=== PATIENT | male | born 1935 | race Caucasian/White ===

== ENCOUNTER 2016-05-06 17:53 | Inpatient (IN) | payer MEDICARE, OTHER ==
[~2016-05-06] VITALS: Ht 172.7 cm; Wt 88.3 kg
[~2016-05-06 17:53] MED LIST: ACET-2047 GTB; AMIN30LI GTB; ASCO500C7 GTB; ATOR40TA68 GTB; CALC-67 GTB; CETI-240 GTB; CIPR500T4 GTB; CLON-379 GTB; COLS GTB; CRAN400C GTB; DOXA4TAB3 GTB; ERGO500014 GTB; ESOM40CA GTB; FENO145T19 GTB; GLUC1VIA7 IM; HYDR-3498 GTB; IPRA3AMP INHALATION; LACT1CAP49 GTB; LACT20SO2 GTB; LANT3I SC; LORA1TAB GTB; MAGN400O4 GTB; METO25TA4 GTB; MULT9LIQ2 GTB; NIT4 SL; NITR-58 GTB; NOV SC; OLOP2.5D BOTH EYES; OMEP20CA16 GTB; POLY17PO6 GTB; TETR15DR63 LEFT EYE; UDREG GTB; ZOLP10TA5 GTB
[2016-05-06 18:12] VITALS: Ht 172.7 cm; Wt 88.3 kg
[2016-05-06] MEDS ORDERED: SOD CHLORIDE 0.9% 1,000 ML IV STA ×3 (18:14→18:39)
[2016-05-06] MEDS ORDERED: AZTREONAM 1 GM/NS (PMX) 50 ML IVPB STA (18:14)
[2016-05-06] MEDS ORDERED: ALBUTEROL 0.5% (NEB) 2.5 MG/0.5 ML AMP HHN STA (18:14)
[2016-05-06] MEDS ORDERED: IPRATROPIUM (NEB) 0.5 MG/2.5 ML AMP HHN ONE (18:30)
[2016-05-06] MEDS ORDERED: VANCOMYCIN 1 GM (PMX) 250 ML IVPB ONE (18:30)
[2016-05-06] MEDS ORDERED: HYDROCORTISONE 100 MG INJ IV ONE (18:30)
[2016-05-06 18:37] LABS: BASOPHILS % 0.4 % (0.0-2.0); EOSINOPHILS # 0.1 10^3/ul (0.0-0.5); HEMATOCRIT 26.3 % (42.0-52.0); HEMOGLOBIN 8.4 g/dl (14.0-18.0); LYMPHOCYTES # 1.7 10^3/ul (0.8-2.9); LYMPHOCYTES % 22.5 % (15.0-51.0); MEAN CORPUSCULAR HEMOGLOBIN 26.9 pg (29.0-33.0); MEAN CORPUSCULAR HGB CONC 31.9 g/dl (32.0-37.0); MEAN CORPUSCULAR VOLUME 84.4 fl (82.0-101.0); MEAN PLATELET VOLUME 7.7 fl (7.4-10.4); MONOCYTE # 0.8 10^3/ul (0.3-0.9); MONOCYTES % 10.4 % (0.0-11.0); NEUTROPHIL # 4.9 10^3/ul (1.6-7.5); NEUTROPHILS % 65.7 % (39.0-77.0); PLATELET COUNT 570 10^3/UL (140-440); RED BLOOD COUNT 3.11 10^6/ul (4.70-6.10); RED CELL DISTRIBUTION WIDTH 19.7 % (11.5-14.5); UNCORRECTED WBC 7.5 10^3/ul (4.8-10.8); WHITE BLOOD COUNT 7.5 10^3/ul (4.8-10.8)
[2016-05-06 18:46] LABS: CONDITION 1; LH ANALYZER COMMENTS 1
[2016-05-06 18:47] LABS: ALBUMIN 3.2 g/dl (3.3-4.9)
[2016-05-06 18:48] LABS: INR 3.03; POTASSIUM 5.1 mmol/L (3.5-5.1); PROTIME 31.8 Sec (12.2-14.2); PT RATIO 2.5
[2016-05-06 18:50] LABS: CREATININE 1.1 mg/dl (0.61-1.24); TOTAL PROTEIN 6.7 g/dl (6.1-8.1)
[2016-05-06 18:51] LABS: ALBUMIN/GLOBULIN RATIO 0.91; CALCIUM 9.6 mg/dl (8.4-10.2)
[2016-05-06] MEDS ORDERED: ACETAMINOPHEN 650 MG SUPP PR ONE (19:00)
--- NOTE | 2016-05-06 19:00 | RADRPT ---
PROCEDURE: XR Chest. CLINICAL INDICATION: Possible sepsis. TECHNIQUE: Single frontal view of the chest was obtained COMPARISON: Chest x-ray 01/17/2016 05:42 p.m. FINDINGS: The left ventricle is enlarged. There is a poor inspiration. There is infiltrate in the right lowe r lobe. There is compressive atelectasis in the left lower lobe. There are vascular calcifications in the aortic arch. There are degenerative osteophytes in the thoracic spine. Tracheostomy tube i s well-positioned at T4-5. There is a left pleural effusion. A right pleural effusion is not exclud ed. IMPRESSION: 1. Interval development of a right lower lobe infiltrate suspicious for pneumonia. 2. Suboptimal inspiratory effort with compressive atelectasis in the bases of the lungs. 3. Satisfactory positioning of the tracheostomy tube. 4. Atherosclerotic vascular disease. 5. Left ventricular enlargement. 6. Left pleural effusion. RPTAT:AAJJ Physician Lizet Date Time Electronically viewed and signed by Yobany Lynn Physician on 05/06/2016 18:59 LENARD/
[2016-05-06 19:03] LABS: PARTIAL THROMBOPLASTIN TIME 74.3 Sec (25.0-35.0); TROPONIN-I 0.049 ng/ml (0.00-0.12)
--- NOTE | 2016-05-06 20:40 | ERA ---
ER Documentation Chief Complaint Date/Time DATE: 05/06/16 TIME: 20:37 Chief Complaint BROUGHT IN VIA PRIVATE AMBULANCE FROM SNF DUE TO LOW HGB HPI Patient is an 80-year-old male with chronic respiratory failure who presents from a nursing facility. He was sent for low hemoglobin and fever. His hemoglobin was 7.8 with outpatient laboratory studies. He was brought in by ambulance from a detention facility. Please note the patient is a DNR. Please note the history and physical exam is limited as the patient is aphasic and does not follow commands. ROS All systems reviewed and are negative except as per history of present illness. Medications Home Meds Active Scripts Polyethylene Glycol* (Miralax*) 17 Gm/Pkt Liq, 17 GM GTB DAILY for 30 Days Prov:KARIN SHI V. THEATRE PROGRAM DIRECTOR 05/26/15 Reported Medications Amino Acids/Protein Hydrolys (PRO-STAT LIQUID) 30 Ml Liquid.pkt, 30 ML GTB TID 03/25/16 Tetrahydrozoline Hcl* (Visine*) 0.05% - 15 Ml Drops, 2 DROP LEFT EYE QID Y for RED EYES, #1 EA 03/25/16 Ciprofloxacin Hcl* (Ciprofloxacin Hcl*) 500 Mg Tablet, 500 MG GTB BID for 10 Days, #14 TAB 03/25/16 Insulin Glargine* (Lantus*) 100 Unit/Ml Soln, 20 UNIT SC BID, #1 VIAL 03/25/16 Metoprolol Tartrate* (Lopressor*) 25 Mg Tablet, 25 MG GTB BID, #60 TAB HOLD IF SBP<110 OR HR<55 03/25/16 Zolpidem Tartrate* (Zolpidem Tartrate*) 10 Mg Tablet, 10 MG GTB QHS Y for INSOMNIA, #30 TAB 12/20/15 Ascorbic Acid* (Vitamin C*) 500 Mg Capsule.sa, 500 MG GTB DAILY, CAP 12/20/15 Lactulose* (Lactulose*) 20 Gm/30 Ml Solution, 40 GM GTB QHS, ML 12/20/15 Omeprazole* (Omeprazole*) 20 Mg Capsule.dr, 20 MG GTB DAILY, #30 CAP 12/20/15 Lactobacillus Combination No.4 (Probiotic) 1 Each Capsule, 1 CAP GTB BID, CAP 12/20/15 Cetirizine Hcl* (Cetirizine Hcl*) 10 Mg Tablet, 10 MG GTB DAILY, #30 TAB 12/20/15 Esomeprazole Mag Trihydrate (Nexium) 40 Mg Capsule.dr, 40 MG GTB BID, #30 CAP 12/20/15 Metoclopramide* (Reglan*) 10 Mg/10 Ml Soln, 10 MG GTB Q6, ML 12/20/15 Atorvastatin* (Atorvastatin*) 40 Mg Tablet, 40 MG GTB QHS, #30 TAB 12/20/15 Glucagon* (Glucagen*) 1 Mg Soln, 1 MG IM PRN Y for DECREASED GLUCOSE, VIAL 05/23/15 Insulin Aspart* (Novolog Insulin Vial*) 100 U/Ml Vial, 1-6 UNITS SC BID, VIAL 05/23/15 Ergocalciferol* (Drisdol* (Vitamin D2)) 50,000 Unit Capsule, 78105 UNIT GTB Q7D , CAP Monday05/23/15 Lorazepam* (Lorazepam*) 1 Mg Tablet, 1 MG GTB Q6 Y for ANXIETY, #60 TAB 05/01/15 Hydrocodone Bit-Acetaminophen* (Dauphin*) 5-325 Mg Tab, 1 TAB GTB Q4H Y for PAIN, TAB 05/01/15 Magnesium Hydroxide* (Milk Of Magnesia*) 400 Mg/5 Ml Oral.susp, 30 ML GTB DAILY Y for CONSTIPATION, ML 05/01/15 Nitroglycerin* (Nitrostat*) 0.4 Mg Tab.subl, 0.4 MG SL Q5MIN Y for CHEST PAIN, BOTTLE 05/01/15 Clonidine Hcl* (Clonidine Hcl*) 0.1 Mg Tab, 0.1 MG GTB Q8 Y for ELEVATED BLOOD PRESSURE, TAB 05/01/15 Acetaminophen* (Acetaminophen*) 650 Mg Tablet, 650 MG GTB Q6H Y for PAIN AND OR ELEVATED TEMP, #30 TAB 05/01/15 Cranberry (Cranberry) 400 Mg Capsule, 400 MG GTB DAILY, CAP 05/01/15 Olopatadine* (Pataday*) 0.2% - 2.5 Ml Drops, 1 DROP BOTH EYES DAILY, EA 05/01/15 Calcium Carbonate/Vitamin D3* (Os-Olivier 500+D*) 1 Tab Tablet, 1 TAB GTB DAILY, TAB 05/01/15 Multivitamin/Minerals* (Multivitamin w/Min* Liq) 9 Mg/15 Ml Liquid, 15 ML GTB DAILY, ML 05/01/15 Fenofibrate Nanocrystallized* (Fenofibrate*) 145 Mg Tablet, 145 MG GTB QHS, TAB 05/01/15 Doxazosin Mesylate* (Doxazosin Mesylate*) 4 Mg Tablet, 4 MG GTB HS, TAB HOLD FOR SBP<100, HR<60 05/01/15 Docusate Sodium* (Colace* Liq) 10 Mg/Ml Syrup, 100 MG GTB BID, ML 05/01/15 Ipratropium-Albuterol (Ipratropium-Albuterol) 0.5-3 Mg/3 Ml Ampul.neb, 3 ML INHALATION Q6, #30 VIAL 05/01/15 Discontinued Reported Medications Nitrofurantoin Monohyd Macrocr* (Macrobid*) 100 Mg Capsr, 100 MG GTB Q6 for 10 Days, CAP 03/25/16 Allergies Allergies: Coded Allergies: cefazolin sodium (Verified Allergy, Severe, 03/25/16) throat swelling and hives piroxicam (Verified Allergy, Intermediate, 03/25/16) Penicillins (Verified Allergy, Unknown, 03/25/16) PMhx/Soc History of Surgery: Yes (g tube) Anesthesia Reaction: No Hx Neurological Disorder: No Hx Respiratory Disorders: Yes (s/p trach 1 year ago, no vent) Hx Cardiac Disorders: Yes (A-fib) Hx Psychiatric Problems: No Hx Miscellaneous Medical Probl: Yes (trach, chronic encephalopathy, CVA, CAD, A -Fib, C-Diff, Respiratory failure) Hx Alcohol Use: No Hx Substance Use: No Hx Tobacco Use: Yes (quit 30 yrs ago) Smoking Status: Former smoker FmHx Unable to obtain Physical Exam Vitals Vital Signs Date Time Temp Pulse Resp B/P Pulse Ox O2 Delivery O2 Flow Rate FiO2 05/06/16 18:53 4 05/06/16 18:30 101.3 106 24 113/61 99 Trach Collar 05/06/16 18:26 89 30 95 Aerosol Mask 4.0 05/06/16 18:12 100.4 82 24 141/65 98 Physical Exam Const: Chronically ill Head: Atraumatic Eyes: Normal Conjunctiva ENT: Normal External Ears, Nose and Mouth. Neck: Full range of motion..~ No meningismus. Resp: Wheezing diffusely Cardio: Tachycardic rate Abd: Soft, non tender, non distended. Normal bowel sounds Skin: Pale Back: No midline or flank tenderness Ext: No cyanosis, or edema Neur: Awake but encephalopathic at baseline Result Diagram: 05/06/16181905/06/161819 Results 24 hrs Laboratory Tests Test 05/06/16 18:20 Activated Partial Thromboplast Time 74.3Sec Alanine Aminotransferase (ALT/SGPT) 22IU/L Albumin 3.2g/dl Albumin/Globulin Ratio 0.91 Alkaline Phosphatase 40IU/L Anion Gap 13 Aspartate Amino Transf (AST/SGOT) 52IU/L Basophils # 0.010^3/ul Basophils % 0.4% Blood Morphology Comment Blood Urea Nitrogen 65mg/dl Calcium Level 9.6mg/dl Carbon Dioxide Level 36mmol/L Chloride Level 88mmol/L Creatinine 1.10mg/dl Direct Bilirubin 0.00mg/dl Eosinophils # 0.110^3/ul Eosinophils % 1.0% Globulin 3.50g/dl Glucose Level 184mg/dl Hematocrit 26.3% Hemoglobin 8.4g/dl INR International Normalized Ratio 3.03 Indirect Bilirubin 0.0mg/dl Lactic Acid Level 1.0mmol/L Lymphocytes # 1.710^3/ul Lymphocytes % 22.5% Mean Corpuscular Hemoglobin 26.9pg Mean Corpuscular Hemoglobin Concent 31.9g/dl Mean Corpuscular Volume 84.4fl Mean Platelet Volume 7.7fl Monocytes # 0.810^3/ul Monocytes % 10.4% Neutrophils # 4.910^3/ul Neutrophils % 65.7% Nucleated Red Blood Cells # 0.010^3/ul Nucleated Red Blood Cells % 0.0/100WBC Platelet Count 43850^3/UL Potassium Level 5.1mmol/L Prothrombin Time 31.8Sec Prothrombin Time Ratio 2.5 Red Blood Count 3.1110^6/ul Red Cell Distribution Width 19.7% Sodium Level 132mmol/L Total Bilirubin 0.0mg/dl Total Protein 6.7g/dl Troponin I 0.049ng/ml White Blood Count 7.510^3/ul Current Medications Medications (Trade) Dose Ordered Sig/Sreekanth Route PRN Reason Start Time Stop Time Status Last Admin Dose Admin Vancomycin HCl 250 ml @ 125 mls/hr ONCE ONCE IVPB 05/06/16 18:30 05/06/16 20:29 DC 05/06/16 19:12 Aztreonam (Azactam 1gm/NS (Pmx)) 50 ml @ 100 mls/hr ONCE STAT IVPB 05/06/16 18:14 05/06/16 18:43 DC 05/06/16 18:47 Albuterol (Proventil 0.5% (Neb)) 5 mg ONCE STAT HHN 05/06/16 18:14 05/06/16 18:17 DC 05/06/16 18:26 Ipratropium [place] (Atrovent 0.02% (Neb)) 0.5 mg ONCE ONCE HHN 05/06/16 18:30 05/06/16 18:31 DC 05/06/16 18:26 Hydrocortisone 100 mg 100 mg ONCE ONCE IV 05/06/16 18:30 05/06/16 18:31 DC 05/06/16 18:42 Sodium Chloride 1,000 ml @ 1,000 mls/hr Q1H STAT IV 05/06/16 18:14 05/06/16 19:13 DC 05/06/16 18:42 Sodium Chloride (NS) 1,000 ml @ 1,000 mls/hr Q1H STAT IV 05/06/16 18:14 05/06/16 19:13 DC 05/06/16 18:47 Acetaminophen 650 mg 650 mg ONCE ONCE [place] 05/06/16 19:00 05/06/16 19:01 DC 05/06/16 19:13 Sodium Chloride (NS) 1,000 ml @ 1,000 mls/hr Q1H STAT IV 05/06/16 18:39 05/06/16 19:38 DC 05/06/16 19:13 Ondansetron HCl (Zofran Inj) 4 mg ER BRIDGE PRN IV NAUSEA AND/OR VOMITING 05/06/16 21:00 05/07/16 20:59 Acetaminophen (Tylenol Tab) 650 mg ER BRIDGE PRN PO MILD PAIN/FEVER 05/06/16 21:00 05/07/16 20:59 Procedures/MDM EKG read by me: Rate/Rhythm: Atrial fibrillation at a rate of 83 Intervals: Normal Impression: Atrial fibrillation without evidence of ischemia PROCEDURE: XR Chest. CLINICAL INDICATION: Possible sepsis. TECHNIQUE: Single frontal view of the chest was obtained COMPARISON: Chest x-ray 01/17/2016 05:42 p.m. FINDINGS: The left ventricle is enlarged. There is a poor inspiration. There is infiltrate in the right lower lobe. There is compressive atelectasis in the left lower lobe. There are vascular calcifications in the aortic arch. There are degenerative osteophytes in the thoracic spine. Tracheostomy tube is well- positioned at T4-5. There is a left pleural effusion. A right pleural effusion is not excluded. IMPRESSION: 1. Interval development of a right lower lobe infiltrate suspicious for pneumonia. 2. Suboptimal inspiratory effort with compressive atelectasis in the bases of the lungs. 3. Satisfactory positioning of the tracheostomy tube. 4. Atherosclerotic vascular disease. 5. Left ventricular enlargement. 6. Left pleural effusion. RPTAT:AAJJ Physician Lizet Date Time Electronically viewed and signed by Yobany Lynn Physician on 05/06/2016 18:59 Admit MDM: Patient's infectious symptoms have not stabilized and the patient is at risk of rapid decompensation. The patient will be admitted for careful hydration, antibiotic therapy, and infectious source control. Severe Sepsis criteria: Infectious source: Pneumonia End organ damage indicated by: INR greater than 1.5 Sepsis Management: Time of recognition of sepsis: 18:59 Within 3 hours of recognition: Blood cultures x 2 before broad-spectrum antibiotics: Yes 30 ml/kg NS bolus Completed Initial lactate 1.0 Repeat lactate pending Time of recognition of septic shock: No septic shock Septic Shock Assessment: Any lactic acid > 4.0 No Persistent hypotension (SBP < 90 or 40 mmHg drop, MAP < 65) despite 30 mL/kg IV fluid bolus No Volume Re-assessment for Septic Shock (post 30 ml/kg bolus): No septic shock at this time Persistent Hypotension Treatment: Comfort care no Central line Not Required Vasopressor started Not required I considered further perfusion assessment with CVP measurement, SCVO2, bedside ultrasound volume assessment, passive leg raise, trial of further fluid bolus. And proceeded with 30 ml/kg fluid bolus of NSS, broad spectrum antibiotics, and admission. I also ordered 2 units of packed red blood cells as the patient's initial hemoglobin was 7.8 with outpatient laboratory studies and was only 8.4 in the emergency department. I am concerned as he is pale and tachycardic as well. Accepting Care Team Current data and ongoing care discussed. Admitting Physician: Dr. Valderrama from the panel team Airline Pilot Flight Instructor(s): None Outstanding Data: Culture results and repeat lactic acid Critical Care: Critical care time 35 minutes excluding all billable procedures Emergent fluid management while maintaining close respiratory support. Provision of immediate and broad-spectrum antibiotic therapy. Simultaneous assessment for possible sources in order to direct targeted therapy. Consideration for invasive and chemical support to prevent cardiopulmonary collapse. Departure Diagnosis: Primary Impression: Sepsis Qualified Code: A41.9 - Sepsis, due to unspecified organism Additional Impressions: Anemia Qualified Code: D64.9 - Anemia, unspecified type Pneumonia Qualified Code: J18.9 - Pneumonia due to infectious organism, unspecified laterality, unspecified part of lung Condition: MARY KATE Alcantar MD May 06, 2016 20:40
[2016-05-06] MEDS ORDERED: ONDANSETRON 4 MG INJ IV PRN (21:00)
[2016-05-06] MEDS ORDERED: ACETAMINOPHEN 325 MG TAB PO PRN (21:00)
[2016-05-07] VITALS (13 sets, daily range): BP systolic 100–156; BP diastolic 46–72; PULSE 50–128; RESP 16–18; TEMP 97.9
[2016-05-07] MEDS ORDERED: GLUCOSE GEL 15 GRAM TUBE PO PRN ×2 (05:30)
[2016-05-07] MEDS ORDERED: GLUCAGON 1 MG INJ IM PRN (05:30)
[2016-05-07] MEDS ORDERED: GLUCOSE GEL 15 GRAM TUBE BUCCAL PRN (05:30)
[2016-05-07] MEDS ORDERED: DEXTROSE 50% 50 ML SYRINGE IV PRN ×2 (05:30)
--- NOTE | 2016-05-07 06:58 | HP ---
Date/Time of Note Date/Time of Note DATE: 05/07/16 TIME: 06:48 Assessment/Plan VTE Prophylaxis VTE Prophylaxis Intervention: SCD's Lines/Catheters IV [facility] [place] Lock Urinary Cath still in place: No Assessment/Plan Assessment/Plan IMPRESSION 1. Sepsis 2/2 Influenza A, with possible overlying bacterial PNA 2. Anemia, r/o GI Bleed 3. Chronic trach dependent respiratory failure 4. Hx of CVA 5. Hx of CAD 6. Afib PLAN - Abx, Tamiflu - f/u culture results, including tracheal aspirate - Will check FOBT and Iron profile. will place a GI consult - Bronchodilators as needed - Cont home meds with adjustment as needed - Pulmonary consult HPI/ROS Admit Date/Time Admit Date/Time May 06, 2016 at 20:35 Hx of Present Illness Patient is an 80-year-old male with hx of chronic trach dependent respiratory failure, CVA, CAD, Afib who presents from a nursing facility. He was sent for low hemoglobin and fever. His hemoglobin was 7.8 with outpatient laboratory studies. He was brought in by ambulance from a alf facility. Please note the patient is a DNR. Please note the history and physical exam is limited as the patient is aphasic and does not follow commands. In ER, pt was febrile with temp of 101.6, HR 106. Labs showed Hgb 8.4, Na 132, Cl 88 and BUN 65. CXR showed right lower lobe infiltrate suspicious for pneumonia. . PMH/Family/Social Past Medical History Medical History: coronary artery disease, other (CVA, chronic resp failure, afib) Past Surgical History Past Surgical Hx: angioplasty, endoscopy, other Social History Alcohol Use: none Smoking Status: Former smoker Drug Use: none Exam/Review of Systems Vital Signs Vitals Vital Signs Date Time Temp Pulse Resp B/P Pulse Ox O2 Delivery O2 Flow Rate FiO2 05/07/16 05:34 50 05/07/16 04:27 10.0 05/07/16 04:22 97.9 16 100/56 98 Trach Collar 05/07/16 03:38 28 Exam Constitutional: non-verbal, other (trached) Head: atraumatic, normocephalic Eyes: PERRL Respiratory: diminished breath sounds Cardiovascular: other (tachycardic) Gastrointestinal: other (no gramices noted), soft Extremities: normal pulses Labs Result Diagram: 05/06/16181905/06/161819 Medications Medications Current Medications Insulin Glargine (Lantus) 20 unit BID@08,20 SC ; Start 05/07/16 at 08:00 Clonidine (Catapres) 0.1 mg Q6 PRN GTB ELEVATED BLOOD PRESSURE; Start 05/07/16 at 05:00 Miscellaneous Information 1 ea NOTE XX ; Start 05/07/16 at 05:30 Glucose (Glutose) 15 gm Q15M PRN PO DECREASED GLUCOSE; Start 05/07/16 at 05:30 Glucose (Glutose) 22.5 gm Q15M PRN PO DECREASED GLUCOSE; Start 05/07/16 at 05:30 Dextrose (D50w Syringe) 25 ml Q15M PRN IV DECREASED GLUCOSE; Start 05/07/16 at 05:30 Dextrose (D50w Syringe) 50 ml Q15M PRN IV DECREASED GLUCOSE; Start 05/07/16 at 05:30 Glucagon (Glucagen) 1 mg Q15M PRN IM DECREASED GLUCOSE; Start 05/07/16 at 05:30 Glucose (Glutose) 15 gm Q15M PRN BUCCAL DECREASED GLUCOSE; Start 05/07/16 at 05: 30 Insulin Aspart NOVOLOG *MODERATE* ALGORI... Q6 SC ; Start 05/07/16 at 06:00 Levofloxacin/ Dextrose (Levaquin 500mg/ D5W 100 ml (Pmx)) 100 ml @ 100 mls/hr Q24H IVPB ; Start 05/07/16 at 06:30 GIANA HENDERSON MD May 07, 2016 06:58
[2016-05-07] MEDS: LEVOFLOXACIN 500MG/D5W (PMX) 100 ML IVPB SCH ×2 (07:14→08:08)
[2016-05-07] MEDS ORDERED: INSULIN ASPART [NOVOLOG] 3 ML PEN SC SCH (07:55)
[2016-05-07] MEDS: OSELTAMIVIR 75 MG CAP PO SCH ×2 (08:08→20:49)
[2016-05-07] MEDS: INSULIN ASPART [NOVOLOG] 3 ML PEN SC SCH ×3 (08:11→17:32)
[2016-05-07] MEDS: INSULIN GLARGINE [LANtus] 3 ML PEN SC SCH ×2 (08:11→20:51)
--- NOTE | 2016-05-07 08:39 | CONS ---
Date/Time of Note Date/Time of Note DATE: 05/07/16 TIME: 08:39 Assessment/Plan Assessment/Plan Additional Assessment/Plan Anemia * Evaluate for PUD versus iron deficient * Iron profile * Stool OB * PPI therapy * Monitor H&H every 6 hours, transfuse 2 units for hemoglobin less than 7.5 * Recommend EGD if clinically indicated Sepsis 2/2 Influenza A, with possible overlying bacterial PNA Dysphagia * Status post G-tube replacement March 25, 2016 * KUB in process to evaluate high residual * Monitor residual every 6 hours, hold tube feed for residual greater than 150 mL Chronic trach dependent respiratory failure Hx of CVA Hx of CAD Afib Further recommendations depend on clinical course Patient seen in collaboration with Dr. Shah Consultation Date/Type/Reason Admit Date/Time May 06, 2016 at 20:35 Type of Consultation: Gastroenterology Reason for Consultation Anemia Hx of Present Illness 80-year-old Ukrainian speaking male with past medical history of respiratory dependence NG tube placement status post CVA and [place] 1.5 years ago. Patient's son and [id number] at bedside and provided most of history. Patient was transferred to ED from [facility] facility due to low hemoglobin. Unsure if patient had melena stools. Patient was previously here March 25, 2016 for G-tube to be replaced. Patient had EGD May 25, 2015 and was noted to have circumferential ulceration at the distal esophagus and small hiatal hernia. Per son and [id number], patient did not exhibit overt signs of bleeding. Patient is DNR however did consent to EGD if clinically necessary. At bedside, patient noted to have high residual tube feed. KUB ordered to rule out ileus or SBO. Will collect stool OB and iron profile and evaluate further. Past Medical History Medical History: coronary artery disease, other (CVA, chronic resp failure, afib) Past Surgical History Past Surgical Hx: angioplasty, endoscopy, other Social History Alcohol Use: none Smoking Status: Former smoker Drug Use: none Exam/Review of Systems Vital Signs Vitals Vital Signs Date Time Temp Pulse Resp B/P Pulse Ox O2 Delivery O2 Flow Rate FiO2 05/07/16 08:25 50 05/07/16 07:24 98.1 18 104/46 97 05/07/16 04:27 10.0 05/07/16 04:22 Trach Collar 05/07/16 03:38 28 Exam Constitutional: alert, oriented Psych: nl mood/affect Head: normocephalic Eyes: EOMI, nl conjunctiva, nl lids, nl sclera ENMT: mucosa pink and moist, nl external ears & nose, nl lips & teeth, nl nasal mucosa & septum Respiratory: other (Trachea dependent respiratory failure) Cardiovascular: regular rate and rhythm Gastrointestinal: non-tender, soft Musculoskeletal: nl extremities to inspection Extremities: edema Neurological: nl mental status, other (Slurred speech secondary to CVA) Results Result Diagram: 05/06/16181905/06/161819 Results 24 hrs Laboratory Tests Test 05/06/16 18:20 05/06/16 20:30 05/06/16 22:30 05/07/16 06:50 Activated Partial Thromboplast Time 74.3 *H Alanine Aminotransferase (ALT/SGPT) 22 Albumin 3.2 L Albumin/Globulin Ratio 0.91 Alkaline Phosphatase 40 L Anion Gap 13 Aspartate Amino Transf (AST/SGOT) 52 H Basophils # 0.0 Basophils % 0.4 Blood Morphology Comment Blood Urea Nitrogen 65 H Calcium Level 9.6 Carbon Dioxide Level 36 H Chloride Level 88 L Creatinine 1.10 Direct Bilirubin 0.00 Eosinophils # 0.1 Eosinophils % 1.0 Globulin 3.50 H Glucose Level 184 Hematocrit 26.3 L Hemoglobin 8.4 L INR International Normalized Ratio 3.03 Indirect Bilirubin 0.0 Lactic Acid Level 1.0 0.5 0.6 Lymphocytes # 1.7 Lymphocytes % 22.5 Mean Corpuscular Hemoglobin 26.9 L Mean Corpuscular Hemoglobin Concent 31.9 L Mean Corpuscular Volume 84.4 Mean Platelet Volume 7.7 Monocytes # 0.8 Monocytes % 10.4 Neutrophils # 4.9 Neutrophils % 65.7 Nucleated Red Blood Cells # 0.0 Nucleated Red Blood Cells % 0.0 Platelet Count 570 H Potassium Level 5.1 Prothrombin Time 31.8 #H Prothrombin Time Ratio 2.5 Red Blood Count 3.11 L Red Cell Distribution Width 19.7 H Sodium Level 132 L Total Bilirubin 0.0 L Total Protein 6.7 Troponin I 0.049 White Blood Count 7.5 # Bedside Glucose 249 H Medications Medications Current Medications Insulin Glargine (Lantus) 20 unit BID@08,20 SC Last administered on 05/07/16t 08 :11; Admin Dose 20 UNIT; Start 05/07/16 at 08:00 Clonidine (Catapres) 0.1 mg Q6 PRN GTB ELEVATED BLOOD PRESSURE; Start 05/07/16 at 05:00 Miscellaneous Information 1 ea NOTE XX ; Start 05/07/16 at 05:30 Glucose (Glutose) 15 gm Q15M PRN PO DECREASED GLUCOSE; Start 05/07/16 at 05:30 Glucose (Glutose) 22.5 gm Q15M PRN PO DECREASED GLUCOSE; Start 05/07/16 at 05:30 Dextrose (D50w Syringe) 25 ml Q15M PRN IV DECREASED GLUCOSE; Start 05/07/16 at 05:30 Dextrose (D50w Syringe) 50 ml Q15M PRN IV DECREASED GLUCOSE; Start 05/07/16 at 05:30 Glucagon (Glucagen) 1 mg Q15M PRN IM DECREASED GLUCOSE; Start 05/07/16 at 05:30 Glucose (Glutose) 15 gm Q15M PRN BUCCAL DECREASED GLUCOSE; Start 05/07/16 at 05: 30 Insulin Aspart NOVOLOG *MODERATE* ALGORI... Q6 SC Last administered on 08:11; Admin Dose 6 UNIT; Start 05/07/16 at 06:00 Levofloxacin/ Dextrose (Levaquin 500mg/ D5W 100 ml (Pmx)) 100 ml @ 100 mls/hr Q24H IVPB Last administered on 05/07/16 08:08; Admin Dose 100 MLS/HR; Start 05/07/16 at 06:30 Oseltamivir Phosphate (Tamiflu) 75 mg BID PO Last administered on 05/07/16 08: 08; Admin Dose 75 MG; Start 05/07/16 at 09:00 Influenza Virus Vaccine (Fluzone) 0.5 ml ONCE ONCE IM* ; Start 05/10/16 at 09:00 ; Stop 05/10/16 at 09:01 LISA ESPINOZA May 07, 2016 08:39
[2016-05-07 10:17] LABS: ALBUMIN 2.8 g/dl (3.3-4.9)
[2016-05-07 10:18] LABS: POTASSIUM 4.3 mmol/L (3.5-5.1)
[2016-05-07 10:20] LABS: ALBUMIN/GLOBULIN RATIO 0.9; CREATININE 0.9 mg/dl (0.61-1.24); TOTAL PROTEIN 5.9 g/dl (6.1-8.1)
[2016-05-07 10:21] LABS: CALCIUM 8.6 mg/dl (8.4-10.2)
[2016-05-07 10:49] LABS: IRON 30 ug/dl (35-150)
[2016-05-07 10:51] LABS: HEMATOCRIT 24.1 % (42.0-52.0); HEMOGLOBIN 7.3 g/dl (14.0-18.0); MEAN CORPUSCULAR HEMOGLOBIN 27.5 pg (29.0-33.0); MEAN CORPUSCULAR HGB CONC 30.3 g/dl (32.0-37.0); MEAN CORPUSCULAR VOLUME 90.9 fl (82.0-101.0); PLATELET COUNT 523 10^3/UL (140-440); RED BLOOD COUNT 2.65 10^6/ul (4.70-6.10); RED CELL DISTRIBUTION WIDTH 18.6 % (11.5-14.5); WHITE BLOOD COUNT 5.2 10^3/ul (4.8-10.8)
[2016-05-07 10:52] LABS: BASOPHILS % 0.2 % (0.0-2.0); LYMPHOCYTES # 1.2 10^3/ul (0.8-2.9); LYMPHOCYTES % 23.5 % (15.0-51.0); MEAN PLATELET VOLUME 10.3 fl (7.4-10.4); MONOCYTE # 0.4 10^3/ul (0.3-0.9); MONOCYTES % 6.9 % (0.0-11.0); NEUTROPHIL # 3.5 10^3/ul (1.6-7.5); NEUTROPHILS % 67.3 % (39.0-77.0)
[2016-05-07 10:59] LABS: TOTAL IRON BINDING CAPACITY 272 ug/dl (241-421)
[2016-05-07] MEDS: PANTOPRAZOLE 40 MG INJ IV SCH ×2 (11:55→20:50)
[2016-05-07] MEDS ORDERED: SOD CHLORIDE 0.9% 250 ML IV* ONE (12:19)
--- NOTE | 2016-05-07 14:44 | RADRPT ---
PROCEDURE: XR Abdomen. CLINICAL INDICATION: Sepsis, high residuals from feeding tube. TECHNIQUE: Single AP view of the abdomen is available for review. COMPARISON: 03/25/2016 FINDINGS: There is patchy airspace opacity in the left lung base. The bowel gas pattern is normal. There is no evidence of obstruction. Gastrostomy tube demonstrates stable and satisfactory position. There are no abnormal calcifications overlying the urinary tracts. No free air identified. The osseous structures do not demonstrate acute abnormality. Right femur intramedullary yao and dynamic hip screw is noted with incompletely healed femoral neck fracture. IMPRESSION: 1. No evidence of bowel obstruction, perforation or radiopaque calculi overlying the urinary tracts . 2. Stable and satisfactory position of gastrostomy tube. 3. Incompletely healed right femoral neck fracture with intramedullary yao and dynamic hip screw, w ithout evidence of hardware failure or other complication. 4. Patchy infiltrate in left lung base. RPTAT: QQ .Micky Garcia MD, MD Date Time Electronically viewed and signed by .Micky Garcia MD, MD on 05/07/2016 14:44 .M/
--- NOTE | 2016-05-07 15:44 | PN ---
DATE: 05/07/2016 PULMONARY FOLLOWUP SUBJECTIVE: The patient remains essentially unchanged. PHYSICAL EXAMINATION: VITAL SIGNS: Temperature 97, pulse 120, blood pressure 121/50, O2 saturation 96% on 35% FIO2. NECK: Trach site clean and intact. CARDIAC EXAM: S1, S2. No added sounds or murmurs. CHEST: Diminished air entry bilaterally. ABDOMEN: Soft, nontender. No guarding or rebound. EXTREMITIES: No cyanosis, clubbing or edema. NEUROLOGIC: Generalized weakness. LABORATORY: White count 5.2, hemoglobin 7.3, platelets of 523. BUN 59, creatinine 0.9. Iron satur ation was 11. INR 3.03. IMPRESSION AND PLAN: 1. Vent-dependent respiratory failure. 2. Anemia. 3. Sepsis. Possible influenza infection. 4. History of encephalopathy. The patient will require: 1. Continued vent support. 2. Transfusion of packed red blood cells. 3. Pulmonary toilet. 4. DVT and GI prophylaxis. 5. Gastrointestinal recommendations. Dictated By: JESSICA MATA/JALEESA Conf#: [id number] DID#: [id number]
[2016-05-07] MEDS: NYSTATIN SUSP 5 ML CUP PO SCH ×2 (17:32→20:49)
[2016-05-07] MEDS: ALBUTEROL/IPRATROPIUM (NEB) 3 ML AMP HHN PRN (22:51)
[2016-05-08] VITALS (13 sets, daily range): BP systolic 114–157; BP diastolic 53–69; PULSE 77–100; RESP 16–20
[2016-05-08] MEDS ORDERED: ACCUCHECK XX SCH (02:00)
[2016-05-08] MEDS: INSULIN ASPART [NOVOLOG] 3 ML PEN SC SCH ×4 (06:00→17:51)
[2016-05-08 06:51] LABS: BASOPHILS % 0.7 % (0.0-2.0); EOSINOPHILS # 0.1 10^3/ul (0.0-0.5); EOSINOPHILS % 2.3 % (0.0-7.0); HEMATOCRIT 31.5 % (42.0-52.0); HEMOGLOBIN 10.5 g/dl (14.0-18.0); LYMPHOCYTES # 1.4 10^3/ul (0.8-2.9); LYMPHOCYTES % 26.4 % (15.0-51.0); MEAN CORPUSCULAR HEMOGLOBIN 28.4 pg (29.0-33.0); MEAN CORPUSCULAR HGB CONC 33.4 g/dl (32.0-37.0); MEAN CORPUSCULAR VOLUME 84.9 fl (82.0-101.0); MEAN PLATELET VOLUME 7.8 fl (7.4-10.4); MONOCYTE # 0.4 10^3/ul (0.3-0.9); MONOCYTES % 7.2 % (0.0-11.0); NEUTROPHIL # 3.5 10^3/ul (1.6-7.5); NEUTROPHILS % 63.4 % (39.0-77.0); PLATELET COUNT 514 10^3/UL (140-440); RED CELL DISTRIBUTION WIDTH 18.3 % (11.5-14.5); UNCORRECTED WBC 5.5 10^3/ul (4.8-10.8); WHITE BLOOD COUNT 5.5 10^3/ul (4.8-10.8)
[2016-05-08 06:56] LABS: CONDITION 1; LH ANALYZER COMMENTS 1
[2016-05-08 07:19] LABS: POTASSIUM 4.4 mmol/L (3.5-5.1)
[2016-05-08 07:21] LABS: CREATININE 0.74 mg/dl (0.61-1.24)
[2016-05-08 07:22] LABS: MAGNESIUM 1.8 mg/dl (1.7-2.5); PHOSPHORUS 2.1 mg/dl (2.5-4.9)
[2016-05-08] MEDS: PANTOPRAZOLE 40 MG INJ IV SCH ×2 (08:09→21:03)
[2016-05-08] MEDS: OSELTAMIVIR 75 MG CAP PO SCH ×2 (08:09→21:04)
[2016-05-08] MEDS: NYSTATIN SUSP 5 ML CUP PO SCH ×4 (08:09→21:04)
[2016-05-08] MEDS: INSULIN GLARGINE [LANtus] 3 ML PEN SC SCH ×2 (08:10→21:08)
--- NOTE | 2016-05-08 08:50 | CONS ---
Date/Time of Note Date/Time of Note DATE: 05/08/16 TIME: 08:49 Assessment/Plan Assessment/Plan Additional Assessment/Plan Anemia * Evaluate for PUD versus iron deficient * Iron profile, iron level low and ferritin elevated * Repeat iron profile, if ferritin remains elevated recommend HemeOnc * Stool OB, negative * PPI therapy * Monitor H&H every 6 hours, transfuse 2 units for hemoglobin less than 7.5 * Recommend EGD if clinically indicated Sepsis / Influenza A, with possible overlying bacterial PNA Dysphagia * Status post G-tube replacement March 25, 2016 * KUB in process to evaluate high residual, normal * Monitor residual every 6 hours, hold tube feed for residual greater than 150 mL Chronic trach dependent respiratory failure Hx of CVA Hx of CAD Afib Further recommendations depend on clinical course Patient seen in collaboration with Dr. Shah Consultation Date/Type/Reason Admit Date/Time May 06, 2016 at 20:35 Initial Consult Date Type of Consultation: Gastroenterology 24 HR Interval Summary Free Text/Dictation Hemoglobin stable Iron level low Ferritin elevated, likely secondary to transfusion yesterday If ferritin levels do not normalize, will recommend HemeOnc G-tube at 60 with minimal residual Exam/Review of Systems Vital Signs Vitals Vital Signs Date Time Temp Pulse Resp B/P Pulse Ox O2 Delivery O2 Flow Rate FiO2 05/08/16 07:40 99.7 85 20 128/53 96 05/08/16 02:51 8.0 35 05/07/16 22:51 Aerosol T Tube Intake and Output 05/07/16 05/07/16 05/08/16 15:00 23:00 07:00 Intake Total 100 ml 530 ml 320 ml Balance 100 ml 530 ml 320 ml Exam Constitutional: alert, oriented Psych: nl mood/affect Head: normocephalic Eyes: EOMI, nl conjunctiva, nl lids, nl sclera ENMT: mucosa pink and moist, nl external ears & nose, nl lips & teeth, nl nasal mucosa & septum Respiratory: other (Trachea dependent respiratory failure) Cardiovascular: regular rate and rhythm Gastrointestinal: non-tender, soft Musculoskeletal: nl extremities to inspection Extremities: edema Neurological: nl mental status, other (Slurred speech secondary to CVA) Results Result Diagram: 05/08/16 0544 05/08/16 0544 Results 24 hrs Laboratory Tests Test 05/07/16 09:43 05/07/16 09:45 05/07/16 11:46 05/07/16 17:10 Alanine Aminotransferase (ALT/SGPT) 27 Albumin 2.8 L Albumin/Globulin Ratio 0.90 Alkaline Phosphatase 33 L Anion Gap 14 Aspartate Amino Transf (AST/SGOT) 39 Blood Urea Nitrogen 59 H Calcium Level 8.6 Carbon Dioxide Level 31 Chloride Level 97 Creatinine 0.90 Direct Bilirubin 0.00 Ferritin 1280.0 H Globulin 3.10 Glucose Level 224 H Indirect Bilirubin 0.0 Potassium Level 4.3 Sodium Level 138 Total Bilirubin 0.0 L Total Protein 5.9 L Basophils # 0.0 Basophils % 0.2 Eosinophils # 0.0 Eosinophils % 0.0 Hematocrit 24.1 L Hemoglobin 7.3 L Iron Level 30 L Lymphocytes # 1.2 Lymphocytes % 23.5 Mean Corpuscular Hemoglobin 27.5 L Mean Corpuscular Hemoglobin Concent 30.3 L Mean Corpuscular Volume 90.9 Mean Platelet Volume 10.3 # Monocytes # 0.4 Monocytes % 6.9 Neutrophils # 3.5 Neutrophils % 67.3 Nucleated Red Blood Cells # 0.0 Nucleated Red Blood Cells % 0.0 Percent Iron Saturation 11 L Platelet Count 523 H Red Blood Count 2.65 L Red Cell Distribution Width 18.6 H Total Iron Binding Capacity 272 White Blood Count 5.2 # Bedside Glucose 205 133 Test 05/07/16 18:00 05/07/16 20:48 05/07/16 23:30 05/08/16 05:44 Stool Occult Blood NEGATIVE Bedside Glucose 99 120 Anion Gap 11 Basophils # 0.0 Basophils % 0.7 Blood Morphology Comment Blood Urea Nitrogen 42 #H Calcium Level 9.0 Carbon Dioxide Level 34 H Chloride Level 100 Creatinine 0.74 Eosinophils # 0.1 Eosinophils % 2.3 Glucose Level 106 # Hematocrit 31.5 #L Hemoglobin 10.5 #L Lymphocytes # 1.4 Lymphocytes % 26.4 Magnesium Level 1.8 Mean Corpuscular Hemoglobin 28.4 L Mean Corpuscular Hemoglobin Concent 33.4 Mean Corpuscular Volume 84.9 Mean Platelet Volume 7.8 # Monocytes # 0.4 Monocytes % 7.2 Neutrophils # 3.5 Neutrophils % 63.4 Nucleated Red Blood Cells # 0.0 Nucleated Red Blood Cells % 0.0 Phosphorus Level 2.1 L Platelet Count 514 H Potassium Level 4.4 Red Blood Count 3.70 #L Red Cell Distribution Width 18.3 H Sodium Level 141 White Blood Count 5.5 Test 05/08/16 06:28 Bedside Glucose 112 Medications Medications Current Medications Insulin Glargine (Lantus) 20 unit BID@08,20 SC Last administered on 05/08/16 08 :10; Admin Dose 20 UNIT; Start 05/07/16 at 08:00 Clonidine (Catapres) 0.1 mg Q6 PRN GTB ELEVATED BLOOD PRESSURE; Start 05/07/16 at 05:00 Miscellaneous Information 1 ea NOTE XX ; Start 05/07/16 at 05:30 Glucose (Glutose) 15 gm Q15M PRN PO DECREASED GLUCOSE; Start 05/07/16 at 05:30 Glucose (Glutose) 22.5 gm Q15M PRN PO DECREASED GLUCOSE; Start 05/07/16 at 05:30 Dextrose (D50w Syringe) 25 ml Q15M PRN IV DECREASED GLUCOSE; Start 05/07/16 at 05:30 Dextrose (D50w Syringe) 50 ml Q15M PRN IV DECREASED GLUCOSE; Start 05/07/16 at 05:30 Glucagon (Glucagen) 1 mg Q15M PRN IM DECREASED GLUCOSE; Start 05/07/16 at 05:30 Glucose (Glutose) 15 gm Q15M PRN BUCCAL DECREASED GLUCOSE; Start 05/07/16 at 05: 30 Insulin Aspart NOVOLOG *MODERATE* ALGORI... Q6 SC Last administered on 11:57; Admin Dose 4 UNIT; Start 05/07/16 at 06:00 Levofloxacin/ Dextrose (Levaquin 500mg/ D5W 100 ml (Pmx)) 100 ml @ 100 mls/hr Q24H IVPB Last administered on 05/07/16 08:08; Admin Dose 100 MLS/HR; Start 05/07/16 at 06:30 Oseltamivir Phosphate (Tamiflu) 75 mg BID PO Last administered on 05/08/16 08: 09; Admin Dose 75 MG; Start 05/07/16 at 09:00 Influenza Virus Vaccine (Fluzone) 0.5 ml ONCE ONCE IM* ; Start 05/10/16 at 09:00 ; Stop 05/10/16 at 09:01 Pantoprazole (Protonix Iv) 40 mg BID IV Last administered on 05/08/16 08:09; Admin Dose 40 MG; Start 05/07/16 at 11:00 Nystatin (Nystatin Susp) 5 ml QID PO Last administered on 05/08/16 08:09; Admin Dose 5 ML; Start 05/07/16 at 17:00 LISA ESPINOZA May 08, 2016 08:50
[2016-05-08] MEDS ORDERED: ZOLPIDEM 5 MG TAB GTB PRN (10:00)
[2016-05-08] MEDS ORDERED: MAGNESIUM HYDROXIDE 30ML CUP GTB PRN (10:00)
[2016-05-08] MEDS ORDERED: GLUCAGON 1 MG INJ IM PRN ×2 (10:00→11:00)
[2016-05-08] MEDS ORDERED: TETRAHYDROZOLINE 0.05% 15 ML OPH LEFT EYE PRN (10:00)
[2016-05-08] MEDS ORDERED: SODIUM PHOSPHATE 15 MMOL in SOD CHLORIDE 0.9% 250 ML IVPB ONE (10:30)
[2016-05-08] MEDS: ALBUTEROL/IPRATROPIUM (NEB) 3 ML AMP HHN PRN ×2 (10:55→20:24)
[2016-05-08] MEDS ORDERED: DEXTROSE 50% 50 ML SYRINGE IV PRN ×2 (11:00)
[2016-05-08] MEDS ORDERED: GLUCOSE GEL 15 GRAM TUBE BUCCAL PRN (11:00)
[2016-05-08] MEDS ORDERED: GLUCOSE GEL 15 GRAM TUBE PO PRN ×2 (11:00)
[2016-05-08] MEDS: METOCLOPRAMIDE (1 MG/ML) 10 ML CUP GTB SCH ×2 (12:43→17:50)
[2016-05-08] MEDS: MUPIROCIN 2% 22 GM OINT TOP SCH ×2 (12:43→21:10)
[2016-05-08] MEDS ORDERED: NON-FORMULARY/PATIENT OWN MED (Amino Acids/Protein Hydrolys (Pro-Stat Liquid) 30 ML) GTB SCH (13:00)
--- NOTE | 2016-05-08 15:38 | CONS ---
Date/Time of Note Date/Time of Note DATE: 05/08/16 TIME: 15:36 Consult Date/Type/Reason Admit Date/Time May 06, 2016 at 20:35 Initial Consult Date Type of Consultation: Pulm Subjective Comfortable. Objective Vital Signs Date Time Temp Pulse Resp B/P Pulse Ox O2 Delivery O2 Flow Rate FiO2 05/08/16 13:21 87 05/08/16 11:51 99.6 20 121/58 95 05/08/16 11:04 Aerosol Mask 10.0 60 Intake and Output 05/07/16 05/07/16 05/08/16 15:00 23:00 07:00 Intake Total 100 ml 530 ml 320 ml Balance 100 ml 530 ml 320 ml PHYSICAL EXAMINATION: VITAL SIGNS: as above. NECK: Trach site clean and intact. CARDIAC EXAM: S1, S2. No added sounds or murmurs. CHEST: Diminished air entry bilaterally. ABDOMEN: Soft, nontender. No guarding or rebound. EXTREMITIES: No cyanosis, clubbing or edema. NEUROLOGIC: Generalized weakness. Results/Medications Result Diagram: 05/08/16 0544 05/08/16 0544 Results 24 hrs Laboratory Tests Test 05/07/16 17:10 05/07/16 18:00 05/07/16 20:48 05/07/16 23:30 Bedside Glucose 133 99 120 Stool Occult Blood NEGATIVE Test 05/08/16 05:44 05/08/16 06:28 05/08/16 12:25 Anion Gap 11 Basophils # 0.0 Basophils % 0.7 Blood Morphology Comment Blood Urea Nitrogen 42 #H Calcium Level 9.0 Carbon Dioxide Level 34 H Chloride Level 100 Creatinine 0.74 Eosinophils # 0.1 Eosinophils % 2.3 Glucose Level 106 # Hematocrit 31.5 #L Hemoglobin 10.5 #L Lymphocytes # 1.4 Lymphocytes % 26.4 Magnesium Level 1.8 Mean Corpuscular Hemoglobin 28.4 L Mean Corpuscular Hemoglobin Concent 33.4 Mean Corpuscular Volume 84.9 Mean Platelet Volume 7.8 # Monocytes # 0.4 Monocytes % 7.2 Neutrophils # 3.5 Neutrophils % 63.4 Nucleated Red Blood Cells # 0.0 Nucleated Red Blood Cells % 0.0 Phosphorus Level 2.1 L Platelet Count 514 H Potassium Level 4.4 Red Blood Count 3.70 #L Red Cell Distribution Width 18.3 H Sodium Level 141 White Blood Count 5.5 Bedside Glucose 112 144 Medications Current Medications Insulin Aspart NOVOLOG *MODERATE* ALGORI... Q6 SC Last administered on 12:45; Admin Dose 2 UNIT; Start 05/07/16 at 06:00 Levofloxacin/ Dextrose (Levaquin 500mg/ D5W 100 ml (Pmx)) 100 ml @ 100 mls/hr Q24H IVPB Last administered on 05/07/16 08:08; Admin Dose 100 MLS/HR; Start 05/07/16 at 06:30 Oseltamivir Phosphate (Tamiflu) 75 mg BID PO Last administered on 05/08/16 08: 09; Admin Dose 75 MG; Start 05/07/16 at 09:00 Influenza Virus Vaccine (Fluzone) 0.5 ml ONCE ONCE IM* ; Start 05/10/16 at 09:00 ; Stop 05/10/16 at 09:01 Pantoprazole (Protonix Iv) 40 mg BID IV Last administered on 05/08/16 08:09; Admin Dose 40 MG; Start 05/07/16 at 11:00 Nystatin (Nystatin Susp) 5 ml QID PO Last administered on 05/08/16 12:43; Admin Dose 5 ML; Start 05/07/16 at 17:00 Ascorbic Acid (Vitamin C) 500 mg DAILY GTB ; Start 05/09/16 at 09:00 Atorvastatin Calcium (Lipitor) 40 mg QHS GTB ; Start 05/08/16 at 21:00 Calcium/Vitamin D (Oyster Shell/ Vit-D (500/200)) 1 tab DAILY GTB ; Start at 09:00 Clonidine (Catapres) 0.1 mg Q8 PRN GTB ELEVATED BLOOD PRESSURE; Start 05/08/16 at 10:00 Docusate Sodium (Colace Liquid Cup) 100 mg BID GTB ; Start 05/08/16 at 21:00 Doxazosin Mesylate (Cardura) 4 mg HS GTB ; Start 05/08/16 at 21:00 Ergocalciferol (Drisdol) 50,000 unit Mo@09 GTB ; Start 05/09/16 at 09:00 Fenofibrate (Tricor) 145 mg QHS GTB ; Start 05/08/16 at 21:00 Insulin Glargine (Lantus) 20 unit 08,20 SC ; Start 05/08/16 at 20:00 Lactulose (Enulose) 40 gm QHS GTB ; Start 05/08/16 at 21:00 Magnesium Hydroxide (Milk Of Mag) 30 ml DAILY PRN GTB CONSTIPATION; Start at 10:00 Metoclopramide HCl (Reglan Liq) 10 mg Q6 GTB Last administered on 05/08/16 12: 43; Admin Dose 10 MG; Start 05/08/16 at 12:00 Metoprolol Tartrate (Lopressor) 25 mg BID GTB ; Start 05/08/16 at 21:00 Polyethylene Glycol (Miralax) 17 gm DAILY GTB ; Start 05/09/16 at 09:00 Tetrahydrozoline HCl (Geneyes Oph) 2 drop QID PRN LEFT EYE RED EYES; Start 05/08 at 10:00 Zolpidem Tartrate (Ambien) 10 mg QHS PRN GTB INSOMNIA; Start 05/08/16 at 10:00 Loratadine (Claritin) 10 mg DAILY PO ; Start 05/09/16 at 09:00 Lactobacillus Acidoph/Bulgaricus (Floranex) 1 tab BID GTB ; Start 05/08/16 at 21: 00 Multivitamins (Thera-Plus) 5 ml DAILY GTB ; Start 05/09/16 at 09:00 Olopatadine HCl (Patanol 0.1% Oph) 1 drop BID BOTH EYES ; Start 05/08/16 at 21:00 Mupirocin (Bactroban) 1 applic BID TOP Last administered on 05/08/16 12:43; Admin Dose 1 APPLIC; Start 05/08/16 at 11:15 Miscellaneous Information 1 ea NOTE XX ; Start 05/08/16 at 11:00 Glucose (Glutose) 15 gm Q15M PRN PO DECREASED GLUCOSE; Start 05/08/16 at 11:00 Glucose (Glutose) 22.5 gm Q15M PRN PO DECREASED GLUCOSE; Start 05/08/16 at 11:00 Dextrose (D50w Syringe) 25 ml Q15M PRN IV DECREASED GLUCOSE; Start 05/08/16 at 11:00 Dextrose (D50w Syringe) 50 ml Q15M PRN IV DECREASED GLUCOSE; Start 05/08/16 at 11:00 Glucagon (Glucagen) 1 mg Q15M PRN IM DECREASED GLUCOSE; Start 05/08/16 at 11:00 Glucose (Glutose) 15 gm Q15M PRN BUCCAL DECREASED GLUCOSE; Start 05/08/16 at 11: 00 Assessment/Plan Chief Complaint/Hosp Course IMPRESSION AND PLAN: 1. Vent-dependent respiratory failure. 2. Anemia. 3. Sepsis. Possible influenza infection. 4. History of encephalopathy. The patient will require: 1. Continued vent support. 2. Transfusion of packed red blood cells. 3. Pulmonary toilet. 4. DVT and GI prophylaxis. 5. Gastrointestinal recommendations. dc planning ok from pulm standpoint. Problems: JESSICA YBARRA MD, [facility] May 08, 2016 15:38
[2016-05-08] MEDS ORDERED: FUROSEMIDE 40 MG INJ IV ONE (18:00)
[2016-05-08 18:07] LABS: AADO2 Arterial 272.6 mmHg (7.0-24.0); Allen Test ACCEPTAB; Arterial Base Excess 8.6 mmol/L (-3.0-3); Arterial COHb 0 % (0.0-3.0); Arterial Fraction of Oxyhgb 96.5 % (93.0-99.0); Arterial HCO3 34.8 mmol/L (22.0-26.0); Arterial MetHb 0.2 % (0.0-1.5); Arterial Total Hemglobin 10.9 g/dl (12.0-18.0); MODE TRACH COLLAR
--- NOTE | 2016-05-08 18:36 | RADRPT ---
PROCEDURE: XR, Chest. CLINICAL INDICATION: Follow up for respiratory distress. TECHNIQUE: AP chest. COMPARISON: Chest, 05/06/2016. FINDINGS: The heart remains somewhat enlarged. There is calcified atherosclerosis of the aortic arch. There is no acute infiltrate in the lungs. No pleural effusion. The tracheostomy tube remains in good po sition.. IMPRESSION: 1. Mild cardiomegaly, unchanged. 2. Calcified atherosclerosis of the aortic arch. RPTAT: GG .Mahin Daniel MD, MD Date Time Electronically viewed and signed by .Mahin Daniel MD, MD on 05/08/2016 18:36 .Y/
[2016-05-08 20:26] LABS: Arterial Base Excess 8.2 mmol/L (-3.0-3); Arterial COHb 0.3 % (0.0-3.0); Arterial Fraction of Oxyhgb 94.3 % (93.0-99.0); Arterial HCO3 34.5 mmol/L (22.0-26.0); Arterial MetHb 0.3 % (0.0-1.5); Arterial Total Hemglobin 11.7 g/dl (12.0-18.0); MODE COOL AEROSOL T-PIECE
[2016-05-08] MEDS: LACTULOSE 30ML CUP GTB SCH (21:04)
[2016-05-08] MEDS: LACTOBACILLUS CHEW TAB GTB SCH (21:04)
[2016-05-08] MEDS: ATORVASTATIN 40 MG TAB GTB SCH (21:04)
[2016-05-08] MEDS: DOCUSATE SODIUM 10 MG/ML (10ML CUP) GTB SCH (21:04)
[2016-05-08] MEDS: FENOFIBRATE 145 MG TAB GTB SCH (21:04)
[2016-05-08] MEDS: OLOPATADINE 0.1% 5 ML OPH BOTH EYES SCH (21:07)
[2016-05-08] MEDS: DOXAZOSIN 4 MG TAB GTB SCH (21:07)
[2016-05-08] MEDS: METOPROLOL 25 MG TAB GTB SCH (21:07)
[2016-05-09] VITALS (12 sets, daily range): BP systolic 111–147; BP diastolic 54–64; PULSE 67–103; RESP 20–22
[2016-05-09] MEDS: METOCLOPRAMIDE (1 MG/ML) 10 ML CUP GTB SCH ×4 (00:27→17:22)
[2016-05-09] MEDS: INSULIN ASPART [NOVOLOG] 3 ML PEN SC SCH ×4 (00:28→17:27)
[2016-05-09] MEDS: ALBUTEROL/IPRATROPIUM (NEB) 3 ML AMP HHN PRN (01:40)
[2016-05-09] MEDS: LEVOFLOXACIN 500MG/D5W (PMX) 100 ML IVPB SCH (05:08)
--- NOTE | 2016-05-09 06:59 | PN ---
DATE: 05/08/2016 SUBJECTIVE: The patient received PRBC transfusion yesterday. No acute events overnight. Guaiac te st is negative. Fevers have improved. Seen by GI and pulmonary team yesterday. OBJECTIVE VITAL SIGNS: T-max 99.7. The rest of his vitals are stable, saturating at 96% on trach via trach F iO2 of 35%. GENERAL: The patient is lying in bed, no acute distress. HEENT: Pupils equal, round, reactive to light. Extraocular movements intact. NECK: Trach site looks clean, dry, and intact. CARDIOVASCULAR: Irregular heart rate but rate controlled. No rubs or gallops. RESPIRATORY: Lungs clear to auscultation bilaterally. ABDOMEN: Soft, nontender, nondistended. G-tube in place. Normal bowel sounds. No rebound or guar ding. MUSCULOSKELETAL: No lower extremity edema bilaterally. NEUROLOGIC: Unable to fully assess as the patient is presently bedbound. LABORATORY DATA: CBC is normal, including hemoglobin 10.5, hematocrit 31.5. The basic metabolic pa niall is normal. Phosphorus is 2.1. IMAGING: KUB was performed and shows no bowel obstruction or perforation, patchy infiltrate in the left lung base. ASSESSMENT AND PLAN: An 80-year-old male sent in from nursing facility for low hemoglobin and found with positive influenza as well. 1. Sepsis, again secondary to influenza A, possible bacterial pneumonia as well. Continue Tamiflu and Levaquin for now. White count is stable. Fevers have improved. Tylenol p.r.n. pain and fevers . 2. Anemia. Again, occult test is negative. He is status post PRBC transfusion. Hemoglobin is sta ble. Continue to monitor for any signs of bleeding. Follow GI recommendations as well. May have E GD if clinically indicated. Continue PPI therapy as well. 3. Dysphagia. Again, KUB was nonspecific. We will follow GI recommendations. We will try to cont inue G-tube feeds and monitor residuals. 4. Respiratory failure with trach placement in the past, ventilator dependent. Continue ventilator support and antibiotics. Follow pulmonary recommendations and oxygen supplementation. 5. History of prior stroke. Continue to monitor for now. 6. History of diabetes. Continue Lantus and insulin sliding scale. 7. History of prior coronary artery disease. Continue to monitor for now. 8. Gastrointestinal prophylaxis. PPI. 9. Deep venous thrombosis prophylaxis, SCDs. 10. History of atrial fibrillation, rate controlled. Continue to monitor for now. Dictated By: NASREEN VAZQUEZ Conf#: [id number] DID#: [id number]
[2016-05-09] MEDS: MULTIVITAMINS 5 ML CUP GTB SCH (08:21)
[2016-05-09] MEDS: LACTOBACILLUS CHEW TAB GTB SCH ×2 (08:21→20:44)
[2016-05-09] MEDS: DOCUSATE SODIUM 10 MG/ML (10ML CUP) GTB SCH ×2 (08:21→20:43)
[2016-05-09] MEDS: PANTOPRAZOLE 40 MG INJ IV SCH ×2 (08:21→20:43)
[2016-05-09] MEDS: POLYETHYLENE GLYCOL 17 GM PACKET GTB SCH (08:21)
[2016-05-09] MEDS: NYSTATIN SUSP 5 ML CUP PO SCH ×4 (08:21→20:43)
[2016-05-09] MEDS: OLOPATADINE 0.1% 5 ML OPH BOTH EYES SCH ×2 (08:22→20:47)
[2016-05-09] MEDS: LORATADINE 10 MG TAB PO SCH (08:22)
[2016-05-09] MEDS: MUPIROCIN 2% 22 GM OINT TOP SCH ×2 (08:22→20:47)
[2016-05-09] MEDS: CALCIUM/VITAMIN D (500/200) TAB GTB SCH (08:22)
[2016-05-09] MEDS: ASCORBIC ACID 500 MG TAB GTB SCH (08:22)
[2016-05-09] MEDS: METOPROLOL 25 MG TAB GTB SCH ×2 (08:22→20:46)
[2016-05-09] MEDS: OSELTAMIVIR 75 MG CAP PO SCH (08:22)
[2016-05-09 08:26] LABS: BASOPHILS % 0.4 % (0.0-2.0); EOSINOPHILS # 0.1 10^3/ul (0.0-0.5); EOSINOPHILS % 1.6 % (0.0-7.0); HEMATOCRIT 31.3 % (42.0-52.0); HEMOGLOBIN 10.2 g/dl (14.0-18.0); LYMPHOCYTES # 1.8 10^3/ul (0.8-2.9); LYMPHOCYTES % 24.5 % (15.0-51.0); MEAN CORPUSCULAR HEMOGLOBIN 27.8 pg (29.0-33.0); MEAN CORPUSCULAR HGB CONC 32.6 g/dl (32.0-37.0); MEAN CORPUSCULAR VOLUME 85.2 fl (82.0-101.0); MEAN PLATELET VOLUME 7.6 fl (7.4-10.4); MONOCYTE # 0.6 10^3/ul (0.3-0.9); NEUTROPHIL # 4.6 10^3/ul (1.6-7.5); NEUTROPHILS % 64.5 % (39.0-77.0); PLATELET COUNT 512 10^3/UL (140-440); RED BLOOD COUNT 3.67 10^6/ul (4.70-6.10); RED CELL DISTRIBUTION WIDTH 18.6 % (11.5-14.5); UNCORRECTED WBC 7.2 10^3/ul (4.8-10.8); WHITE BLOOD COUNT 7.2 10^3/ul (4.8-10.8)
[2016-05-09 08:28] LABS: CONDITION 1; LH ANALYZER COMMENTS 1
[2016-05-09 08:34] LABS: POTASSIUM 4.7 mmol/L (3.5-5.1)
[2016-05-09 08:36] LABS: CREATININE 0.69 mg/dl (0.61-1.24)
[2016-05-09 08:37] LABS: CALCIUM 8.8 mg/dl (8.4-10.2); PHOSPHORUS 1.9 mg/dl (2.5-4.9)
[2016-05-09 08:38] LABS: MAGNESIUM 1.6 mg/dl (1.7-2.5)
[2016-05-09] MEDS: INSULIN GLARGINE [LANtus] 3 ML PEN SC SCH ×2 (08:39→21:03)
[2016-05-09 08:41] LABS: IRON 29 ug/dl (35-150)
[2016-05-09 08:51] LABS: TOTAL IRON BINDING CAPACITY 242 ug/dl (241-421)
[2016-05-09] MEDS ORDERED: ERGOCALCIFEROL 50,000 UNIT CAP GTB SCH (09:00)
[2016-05-09] MEDS ORDERED: CRANBERRY 400 MG GTB SCH (09:00)
--- NOTE | 2016-05-09 10:12 | CONS ---
Date/Time of Note Date/Time of Note DATE: 05/09/16 TIME: 10:08 Assessment/Plan Assessment/Plan Additional Assessment/Plan Assessment and recommendations; 1. Chronic respiratory failure currently doing fairly well on T-piece via tracheostomy. 2. History of CVA. Patient is aphasic. 3. Possibly viral pneumonia. 4. She of diabetes, anemia. Continue current treatment. Patient can be transferred back to the correction. Consultation Date/Type/Reason Admit Date/Time May 06, 2016 at 20:35 Initial Consult Date Type of Consultation: Pulm 24 HR Interval Summary Free Text/Dictation Patient condition is stable, does respond appropriately by eye blinking is nonverbal. Has remained hemodynamically stable. General examination; elderly male, awake, alert. On T piece via tracheostomy. Currently in no distress. Exam/Review of Systems Vital Signs Vitals Vital Signs Date Time Temp Pulse Resp B/P Pulse Ox O2 Delivery O2 Flow Rate FiO2 05/09/16 09:28 91 05/09/16 08:00 94 10.0 05/09/16 07:48 97.5 22 139/64 05/09/16 05:54 Aerosol 60 T Tube Intake and Output 05/08/16 05/08/16 05/09/16 15:00 23:00 07:00 Intake Total 1020 ml 1020 ml Output Total 600 ml 3000 ml Balance 420 ml -1980 ml Exam H EENT examination; supple neck, no JVD. Tracheostomy in place with clean insertion site. Upper jaw is edentulous. Pubic patient has bilateral intraocular lens implants. No lymphadenopathy. No thyromegaly. Chest examination; clear to auscultation bilaterally. S1-S2 audible. No murmurs. Regular rate and rhythm. Abdomen examination; protuberant, nontender. No organomegaly. G-tube in place. Bowel sounds audible. Next Extremity examination; no peripheral edema. [employer] examination; patient is awake follows simple commands by eye blinking, unable to move any extremity on command. Results Result Diagram: 05/09/16 0725 05/09/16 0725 Results 24 hrs Laboratory Tests Test 05/08/16 12:25 05/08/16 17:18 05/08/16 17:42 05/08/16 19:52 Bedside Glucose 144 201 193 Arterial Blood HCO3 34.8 H Arterial Blood Base Excess 8.6 H Arterial Blood Oxygen Saturation 96.7 Alex Test ACCEPTAB Arterial Blood Gas Puncture Site Right Radial Arterial Blood Carboxyhemoglobin 0 Arterial Blood Date Drawn 05/08/2016 6:00:02 PM Arterial Blood Methemoglobin 0.2 Arterial Blood pCO2 (Temp correct) 56.5 H Arterial Blood pH (Temp corrected) 7.407 Arterial Blood pO2 (Temp corrected) 93.1 H Blood Gas A-a O2 Differential 272.6 H Blood Gas Modality TRACH COLLAR Blood Gas Notified Time 05/08/2016 6:07:17 PM Blood Gas Notified Whom ab Blood Gas Specimen Source Blood arterial Blood Gas Temperature 37.0 FiO2 60.0 Oxyhemoglobin Percent 96.5 Total Hemoglobin 10.9 L Test 05/08/16 20:00 05/09/16 00:24 05/09/16 05:07 05/09/16 07:25 Arterial Blood HCO3 34.5 H Arterial Blood Base Excess 8.2 H Arterial Blood Oxygen Saturation 94.9 L Alex Test N/A Arterial Blood Gas Puncture Site Right Brachial Arterial Blood Carboxyhemoglobin 0.3 Arterial Blood Date Drawn 05/08/2016 8:10:14 PM Arterial Blood Methemoglobin 0.3 Arterial Blood pCO2 (Temp correct) 56.6 H Arterial Blood pH (Temp corrected) 7.403 Arterial Blood pO2 (Temp corrected) 75.5 L Blood Gas A-a O2 Differential 290.0 H Blood Gas Actual Respiration Rate 34 Blood Gas Modality COOL AEROSOL T-PIECE Blood Gas Notified Time 05/08/2016 8:26:29 PM Blood Gas Notified Whom RTR Blood Gas Specimen Source Blood arterial Blood Gas Temperature 37.0 FiO2 60.0 Oxyhemoglobin Percent 94.3 Total Hemoglobin 11.7 L Bedside Glucose 192 184 Anion Gap 14 Basophils # 0.0 Basophils % 0.4 Blood Morphology Comment Blood Urea Nitrogen 36 H Calcium Level 8.8 Carbon Dioxide Level 37 H Chloride Level 94 L Creatinine 0.69 Eosinophils # 0.1 Eosinophils % 1.6 Glucose Level 188 Hematocrit 31.3 L Hemoglobin 10.2 L Iron Level 29 L Lymphocytes # 1.8 Lymphocytes % 24.5 Magnesium Level 1.6 L Mean Corpuscular Hemoglobin 27.8 L Mean Corpuscular Hemoglobin Concent 32.6 Mean Corpuscular Volume 85.2 Mean Platelet Volume 7.6 Monocytes # 0.6 Monocytes % 9.0 Neutrophils # 4.6 Neutrophils % 64.5 Nucleated Red Blood Cells # 0.0 Nucleated Red Blood Cells % 0.0 Percent Iron Saturation 12 L Phosphorus Level 1.9 L Platelet Count 512 H Potassium Level 4.7 Red Blood Count 3.67 L Red Cell Distribution Width 18.6 H Sodium Level 140 Total Iron Binding Capacity 242 White Blood Count 7.2 # Medications Medications Current Medications Insulin Aspart NOVOLOG *MODERATE* ALGORI... Q6 SC Last administered on 05:09; Admin Dose 4 UNIT; Start 05/07/16 at 06:00 Levofloxacin/ Dextrose (Levaquin 500mg/ D5W 100 ml (Pmx)) 100 ml @ 100 mls/hr Q24H IVPB Last administered on 05/09/16 05:08; Admin Dose 100 MLS/HR; Start 05/07/16 at 06:30 Oseltamivir Phosphate (Tamiflu) 75 mg BID PO Last administered on 05/09/16 08: 22; Admin Dose 75 MG; Start 05/07/16 at 09:00 Influenza Virus Vaccine (Fluzone) 0.5 ml ONCE ONCE IM* ; Start 05/10/16 at 09:00 ; Stop 05/10/16 at 09:01 Pantoprazole (Protonix Iv) 40 mg BID IV Last administered on 05/09/16 08:21; Admin Dose 40 MG; Start 05/07/16 at 11:00 Nystatin (Nystatin Susp) 5 ml QID PO Last administered on 05/09/16 08:21; Admin Dose 5 ML; Start 05/07/16 at 17:00 Ascorbic Acid (Vitamin C) 500 mg DAILY GTB Last administered on 05/09/16 08:22 ; Admin Dose 500 MG; Start 05/09/16 at 09:00 Atorvastatin Calcium (Lipitor) 40 mg QHS GTB Last administered on 05/08/16 21: 04; Admin Dose 40 MG; Start 05/08/16 at 21:00 Calcium/Vitamin D (Oyster Shell/ Vit-D (500/200)) 1 tab DAILY GTB Last administered on 05/09/16 08:22; Admin Dose 1 TAB; Start 05/09/16 at 09:00 Clonidine (Catapres) 0.1 mg Q8 PRN GTB ELEVATED BLOOD PRESSURE; Start 05/08/16 at 10:00 Docusate Sodium (Colace Liquid Cup) 100 mg BID GTB Last administered on 08:21; Admin Dose 100 MG; Start 05/08/16 at 21:00 Doxazosin Mesylate (Cardura) 4 mg HS GTB Last administered on 05/08/16 21:07; Admin Dose 4 MG; Start 05/08/16 at 21:00 Ergocalciferol (Drisdol) 50,000 unit Mo@09 GTB Last administered on 05/09/16 08 :22; Admin Dose 50,000 UNIT; Start 05/09/16 at 09:00 Fenofibrate (Tricor) 145 mg QHS GTB Last administered on 05/08/16 21:04; Admin Dose 145 MG; Start 05/08/16 at 21:00 Insulin Glargine (Lantus) 20 unit 08,20 SC Last administered on 05/09/16 08:39 ; Admin Dose 20 UNIT; Start 05/08/16 at 20:00 Lactulose (Enulose) 40 gm QHS GTB Last administered on 05/08/16 21:04; Admin Dose 40 GM; Start 05/08/16 at 21:00 Magnesium Hydroxide (Milk Of Mag) 30 ml DAILY PRN GTB CONSTIPATION; Start at 10:00 Metoclopramide HCl (Reglan Liq) 10 mg Q6 GTB Last administered on 05/09/16 05: 08; Admin Dose 10 MG; Start 05/08/16 at 12:00 Metoprolol Tartrate (Lopressor) 25 mg BID GTB Last administered on 05/09/16 08: 22; Admin Dose 25 MG; Start 05/08/16 at 21:00 Polyethylene Glycol (Miralax) 17 gm DAILY GTB Last administered on 05/09/16 08: 21; Admin Dose 17 GM; Start 05/09/16 at 09:00 Tetrahydrozoline HCl (Geneyes Oph) 2 drop QID PRN LEFT EYE RED EYES; Start 05/08 at 10:00 Zolpidem Tartrate (Ambien) 10 mg QHS PRN GTB INSOMNIA; Start 05/08/16 at 10:00 Loratadine (Claritin) 10 mg DAILY PO Last administered on 05/09/16 08:22; Admin Dose 10 MG; Start 05/09/16 at 09:00 Lactobacillus Acidoph/Bulgaricus (Floranex) 1 tab BID GTB Last administered on 05/09/16 08:21; Admin Dose 1 TAB; Start 05/08/16 at 21:00 Multivitamins (Thera-Plus) 5 ml DAILY GTB Last administered on 05/09/16 08:21; Admin Dose 5 ML; Start 05/09/16 at 09:00 Olopatadine HCl (Patanol 0.1% Oph) 1 drop BID BOTH EYES Last administered on 08:22; Admin Dose 1 DROP; Start 05/08/16 at 21:00 Mupirocin (Bactroban) 1 applic BID TOP Last administered on 05/09/16 08:22; Admin Dose 1 APPLIC; Start 05/08/16 at 11:15 Miscellaneous Information 1 ea NOTE XX ; Start 05/08/16 at 11:00 Glucose (Glutose) 15 gm Q15M PRN PO DECREASED GLUCOSE; Start 05/08/16 at 11:00 Glucose (Glutose) 22.5 gm Q15M PRN PO DECREASED GLUCOSE; Start 05/08/16 at 11:00 Dextrose (D50w Syringe) 25 ml Q15M PRN IV DECREASED GLUCOSE; Start 05/08/16 at 11:00 Dextrose (D50w Syringe) 50 ml Q15M PRN IV DECREASED GLUCOSE; Start 05/08/16 at 11:00 Glucagon (Glucagen) 1 mg Q15M PRN IM DECREASED GLUCOSE; Start 05/08/16 at 11:00 Glucose 15 gm 15 gm Q15M PRN BUCCAL DECREASED GLUCOSE; Start 05/08/16 at 11:00 Magnesium Sulfate/ Sodium Chloride (Magnesium Sulfate/NS) 106 ml @ 35.333 mls/ hr ONCE ONCE IVPB ; Start 05/09/16 at 11:00; Stop 05/09/16 at 13:59 JOBY CESAR May 09, 2016 10:12
--- NOTE | 2016-05-09 10:56 | PN ---
Date/Time of Note Date/Time of Note DATE: 05/09/16 TIME: 10:51 Assessment/Plan VTE Prophylaxis VTE Prophylaxis Intervention: SCD's Lines/Catheters IV Catheter Type (from [facility]): Saline Lock Assessment/Plan Assessment/Plan An 80-year-old male sent in from nursing facility for low hemoglobin and found with positive influenza as well. 1. Sepsis, again secondary to influenza A, possible bacterial pneumonia as well. Continue Tamiflu and Levaquin for now. White count is stable. Fevers have improved. Tylenol p.r.n. pain and fevers. 2. Anemia iron deficient. Again, occult test is negative. He is status post PRBC transfusion. Hemoglobin is stable. Continue to monitor for any signs of bleeding. Follow GI recommendations as well. May have EGD if clinically indicated. Continue PPI therapy as well. 3. Dysphagia. Again, KUB was nonspecific. We will follow GI recommendations. We will try to continue G-tube feeds and monitor residuals. 4. Respiratory failure with trach placement in the past, ventilator dependent. Continue ventilator support and antibiotics. Follow pulmonary recommendations and oxygen supplementation. 5. CVA - bed bound - no aspirin. Continue to monitor for now. c/w statin, BB, ACEI as tolerated 6. Type II diabetes. Continue Lantus and insulin sliding scale. 7. Coronary artery disease. Continue to monitor for now. 8. History of atrial fibrillation, rate controlled. Continue to monitor for now. - no anticoagulation - risk of bleeding 9. Gastrointestinal prophylaxis. PPI. 10. Deep venous thrombosis prophylaxis, SCDs. dispo - f/u recs, if improving, and total of 5 days needed for tamiflu with being afebrile, then consider discharge planning. this progress note took greater than 30 minutes to complete Subjective 24 Hr Interval Summary Free Text/Dictation Patient has no overnight events. Afebrile. Otherwise spoke to the nurse about the care plan. 10 minutes spent. Exam/Review of Systems Vital Signs Vitals Vital Signs Date Time Temp Pulse Resp B/P Pulse Ox O2 Delivery O2 Flow Rate FiO2 05/09/16 09:28 91 05/09/16 08:00 94 10.0 05/09/16 07:48 97.5 22 139/64 05/09/16 05:54 Aerosol 60 T Tube Intake and Output 05/08/16 05/08/16 05/09/16 15:00 23:00 07:00 Intake Total 1020 ml 1020 ml Output Total 600 ml 3000 ml Balance 420 ml -1980 ml Exam Gen Diane: NAD, Alert to self HEENT: NC/AT, PERRLA, EOMI, trach - t-piece NECK: supple, no thyromegaly, trach site c/d/i THORAX: symmetrical, no obvious deformities CV: S1S2, RRR, no M/G/R Lungs: CTAB no W/C/R/R Abd: soft, NT/ND, +BS, no rebound, no guarding, neg HSM, peg site c/d/i EXT: no edema, no ecchymosis, no clubbing, FROM Neuro: aphasic, bed-bound Psych: withdrawn Skin: C/D/I Results Result Diagram: 05/09/1672405/09/16724 Results 24 hrs Laboratory Tests Test 05/08/16 12:25 05/08/16 17:18 05/08/16 17:42 05/08/16 19:52 Bedside Glucose 144 201 193 Arterial Blood HCO3 34.8 H Arterial Blood Base Excess 8.6 H Arterial Blood Oxygen Saturation 96.7 Alex Test ACCEPTAB Arterial Blood Gas Puncture Site Right Radial Arterial Blood Carboxyhemoglobin 0 Arterial Blood Date Drawn 05/08/2016 6:00:02 PM Arterial Blood Methemoglobin 0.2 Arterial Blood pCO2 (Temp correct) 56.5 H Arterial Blood pH (Temp corrected) 7.407 Arterial Blood pO2 (Temp corrected) 93.1 H Blood Gas A-a O2 Differential 272.6 H Blood Gas Modality TRACH COLLAR Blood Gas Notified Time 05/08/2016 6:07:17 PM Blood Gas Notified Whom ab Blood Gas Specimen Source Blood arterial Blood Gas Temperature 37.0 FiO2 60.0 Oxyhemoglobin Percent 96.5 Total Hemoglobin 10.9 L Test 05/08/16 20:00 05/09/16 00:24 05/09/16 05:07 05/09/16 07:25 Arterial Blood HCO3 34.5 H Arterial Blood Base Excess 8.2 H Arterial Blood Oxygen Saturation 94.9 L Alex Test N/A Arterial Blood Gas Puncture Site Right Brachial Arterial Blood Carboxyhemoglobin 0.3 Arterial Blood Date Drawn 05/08/2016 8:10:14 PM Arterial Blood Methemoglobin 0.3 Arterial Blood pCO2 (Temp correct) 56.6 H Arterial Blood pH (Temp corrected) 7.403 Arterial Blood pO2 (Temp corrected) 75.5 L Blood Gas A-a O2 Differential 290.0 H Blood Gas Actual Respiration Rate 34 Blood Gas Modality COOL AEROSOL T-PIECE Blood Gas Notified Time 05/08/2016 8:26:29 PM Blood Gas Notified Whom RTR Blood Gas Specimen Source Blood arterial Blood Gas Temperature 37.0 FiO2 60.0 Oxyhemoglobin Percent 94.3 Total Hemoglobin 11.7 L Bedside Glucose 192 184 Anion Gap 14 Basophils # 0.0 Basophils % 0.4 Blood Morphology Comment Blood Urea Nitrogen 36 H Calcium Level 8.8 Carbon Dioxide Level 37 H Chloride Level 94 L Creatinine 0.69 Eosinophils # 0.1 Eosinophils % 1.6 Glucose Level 188 Hematocrit 31.3 L Hemoglobin 10.2 L Iron Level 29 L Lymphocytes # 1.8 Lymphocytes % 24.5 Magnesium Level 1.6 L Mean Corpuscular Hemoglobin 27.8 L Mean Corpuscular Hemoglobin Concent 32.6 Mean Corpuscular Volume 85.2 Mean Platelet Volume 7.6 Monocytes # 0.6 Monocytes % 9.0 Neutrophils # 4.6 Neutrophils % 64.5 Nucleated Red Blood Cells # 0.0 Nucleated Red Blood Cells % 0.0 Percent Iron Saturation 12 L Phosphorus Level 1.9 L Platelet Count 512 H Potassium Level 4.7 Red Blood Count 3.67 L Red Cell Distribution Width 18.6 H Sodium Level 140 Total Iron Binding Capacity 242 White Blood Count 7.2 # Medications Medications Current Medications Insulin Aspart NOVOLOG *MODERATE* ALGORI... Q6 SC Last administered on 05:09; Admin Dose 4 UNIT; Start 05/07/16 at 06:00 Levofloxacin/ Dextrose (Levaquin 500mg/ D5W 100 ml (Pmx)) 100 ml @ 100 mls/hr Q24H IVPB Last administered on 05/09/16 05:08; Admin Dose 100 MLS/HR; Start 05/07/16 at 06:30 Oseltamivir Phosphate (Tamiflu) 75 mg BID PO Last administered on 05/09/16 08: 22; Admin Dose 75 MG; Start 05/07/16 at 09:00 Influenza Virus Vaccine (Fluzone) 0.5 ml ONCE ONCE IM* ; Start 05/10/16 at 09:00 ; Stop 05/10/16 at 09:01 Pantoprazole (Protonix Iv) 40 mg BID IV Last administered on 05/09/16 08:21; Admin Dose 40 MG; Start 05/07/16 at 11:00 Nystatin (Nystatin Susp) 5 ml QID PO Last administered on 05/09/16 08:21; Admin Dose 5 ML; Start 05/07/16 at 17:00 Ascorbic Acid (Vitamin C) 500 mg DAILY GTB Last administered on 05/09/16 08:22 ; Admin Dose 500 MG; Start 05/09/16 at 09:00 Atorvastatin Calcium (Lipitor) 40 mg QHS GTB Last administered on 05/08/16 21: 04; Admin Dose 40 MG; Start 05/08/16 at 21:00 Calcium/Vitamin D (Oyster Shell/ Vit-D (500/200)) 1 tab DAILY GTB Last administered on 05/09/16 08:22; Admin Dose 1 TAB; Start 05/09/16 at 09:00 Clonidine (Catapres) 0.1 mg Q8 PRN GTB ELEVATED BLOOD PRESSURE; Start 05/08/16 at 10:00 Docusate Sodium (Colace Liquid Cup) 100 mg BID GTB Last administered on 08:21; Admin Dose 100 MG; Start 05/08/16 at 21:00 Doxazosin Mesylate (Cardura) 4 mg HS GTB Last administered on 05/08/16 21:07; Admin Dose 4 MG; Start 05/08/16 at 21:00 Ergocalciferol (Drisdol) 50,000 unit Mo@09 GTB Last administered on 05/09/16 08 :22; Admin Dose 50,000 UNIT; Start 05/09/16 at 09:00 Fenofibrate (Tricor) 145 mg QHS GTB Last administered on 05/08/16 21:04; Admin Dose 145 MG; Start 05/08/16 at 21:00 Insulin Glargine (Lantus) 20 unit 08,20 SC Last administered on 05/09/16 08:39 ; Admin Dose 20 UNIT; Start 05/08/16 at 20:00 Lactulose (Enulose) 40 gm QHS GTB Last administered on 05/08/16 21:04; Admin Dose 40 GM; Start 05/08/16 at 21:00 Magnesium Hydroxide (Milk Of Mag) 30 ml DAILY PRN GTB CONSTIPATION; Start at 10:00 Metoclopramide HCl (Reglan Liq) 10 mg Q6 GTB Last administered on 05/09/16 05: 08; Admin Dose 10 MG; Start 05/08/16 at 12:00 Metoprolol Tartrate (Lopressor) 25 mg BID GTB Last administered on 05/09/16 08: 22; Admin Dose 25 MG; Start 05/08/16 at 21:00 Polyethylene Glycol (Miralax) 17 gm DAILY GTB Last administered on 05/09/16 08: 21; Admin Dose 17 GM; Start 05/09/16 at 09:00 Tetrahydrozoline HCl (Geneyes Oph) 2 drop QID PRN LEFT EYE RED EYES; Start 05/08 at 10:00 Zolpidem Tartrate (Ambien) 10 mg QHS PRN GTB INSOMNIA; Start 05/08/16 at 10:00 Loratadine (Claritin) 10 mg DAILY PO Last administered on 05/09/16 08:22; Admin Dose 10 MG; Start 05/09/16 at 09:00 Lactobacillus Acidoph/Bulgaricus (Floranex) 1 tab BID GTB Last administered on 05/09/16 08:21; Admin Dose 1 TAB; Start 05/08/16 at 21:00 Multivitamins (Thera-Plus) 5 ml DAILY GTB Last administered on 05/09/16 08:21; Admin Dose 5 ML; Start 05/09/16 at 09:00 Olopatadine HCl (Patanol 0.1% Oph) 1 drop BID BOTH EYES Last administered on 08:22; Admin Dose 1 DROP; Start 05/08/16 at 21:00 Mupirocin (Bactroban) 1 applic BID TOP Last administered on 05/09/16 08:22; Admin Dose 1 APPLIC; Start 05/08/16 at 11:15 Miscellaneous Information 1 ea NOTE XX ; Start 05/08/16 at 11:00 Glucose (Glutose) 15 gm Q15M PRN PO DECREASED GLUCOSE; Start 05/08/16 at 11:00 Glucose (Glutose) 22.5 gm Q15M PRN PO DECREASED GLUCOSE; Start 05/08/16 at 11:00 Dextrose (D50w Syringe) 25 ml Q15M PRN IV DECREASED GLUCOSE; Start 05/08/16 at 11:00 Dextrose (D50w Syringe) 50 ml Q15M PRN IV DECREASED GLUCOSE; Start 05/08/16 at 11:00 Glucagon (Glucagen) 1 mg Q15M PRN IM DECREASED GLUCOSE; Start 05/08/16 at 11:00 Glucose 15 gm 15 gm Q15M PRN BUCCAL DECREASED GLUCOSE; Start 05/08/16 at 11:00 Magnesium Sulfate/ Sodium Chloride (Magnesium Sulfate/NS) 106 ml @ 35.333 mls/ hr ONCE ONCE IVPB ; Start 05/09/16 at 11:00; Stop 05/09/16 at 13:59 AMMON HOOVER MD May 09, 2016 10:56
[2016-05-09] MEDS ORDERED: MAGNESIUM SULFATE 3 GM in SOD CHLORIDE 0.9% 100 ML IVPB ONE (11:00)
[2016-05-09] MEDS: ACETAMINOPHEN 650MG/20.3ML CUP GTB PRN (11:40)
--- NOTE | 2016-05-09 19:37 | PN ---
Date/Time of Note Date/Time of Note DATE: 05/09/16 TIME: 19:33 Assessment/Plan VTE Prophylaxis VTE Prophylaxis Intervention: SCD's Lines/Catheters IV Catheter Type (from Nrs): Saline Lock Assessment/Plan Assessment/Plan Consultation Anemia likely moderate multifactorial * Stool OB negative * PPI therapy * Monitor H&H every 6 hours, transfuse 2 units for hemoglobin less than 7.5 Sepsis 05/05 Influenza A, with possible overlying bacterial PNA Dysphagia * Status post G-tube replacement March 25, 2016 Chronic trach dependent respiratory failure Hx of CVA Hx of CAD Afib Plan: * Continue present regimen * PPI therapy * Further recommendations depend on clinical course Subjective 24 Hr Interval Summary Free Text/Dictation Course reviewed with nursing staff Stool OB negative Tolerating feedings Intermittently febrile Exam/Review of Systems Vital Signs Vitals Vital Signs Date Time Temp Pulse Resp B/P Pulse Ox O2 Delivery O2 Flow Rate FiO2 05/09/16 17:38 67 05/09/16 17:21 10.0 60 05/09/16 15:18 99.4 22 111/54 98 05/09/16 05:54 Aerosol T Tube Intake and Output 05/08/16 05/08/16 05/09/16 15:00 23:00 07:00 Intake Total 1020 ml 1020 ml Output Total 600 ml 3000 ml Balance 420 ml -1980 ml Exam Constitutional: other (Nonresponsive) Head: atraumatic, normocephalic Neck: other (Tracheostomy in place) Respiratory: crackles/rales (Bilaterally), diminished breath sounds Cardiovascular: regular rate and rhythm Gastrointestinal: nl liver, spleen, non-tender, other (Gastrostomy tube in place), soft Musculoskeletal: nl extremities to inspection Skin: nl turgor Lymph: nl lymph nodes Results Result Diagram: 05/09/1625 05/09/1625 Results 24 hrs Laboratory Tests Test 05/08/16 19:52 05/08/16 20:00 05/09/16 00:24 05/09/16 05:07 Bedside Glucose 193 192 184 Arterial Blood HCO3 34.5 H Arterial Blood Base Excess 8.2 H Arterial Blood Oxygen Saturation 94.9 L Alex Test N/A Arterial Blood Gas Puncture Site Right Brachial Arterial Blood Carboxyhemoglobin 0.3 Arterial Blood Date Drawn 05/08/2016 8:10:14 PM Arterial Blood Methemoglobin 0.3 Arterial Blood pCO2 (Temp correct) 56.6 H Arterial Blood pH (Temp corrected) 7.403 Arterial Blood pO2 (Temp corrected) 75.5 L Blood Gas A-a O2 Differential 290.0 H Blood Gas Actual Respiration Rate 34 Blood Gas Modality COOL AEROSOL T-PIECE Blood Gas Notified Time 05/08/2016 8:26:29 PM Blood Gas Notified Whom RTR Blood Gas Specimen Source Blood arterial Blood Gas Temperature 37.0 FiO2 60.0 Oxyhemoglobin Percent 94.3 Total Hemoglobin 11.7 L Test 05/09/16 07:25 05/09/16 11:48 05/09/16 17:19 Anion Gap 14 Basophils # 0.0 Basophils % 0.4 Blood Morphology Comment Blood Urea Nitrogen 36 H Calcium Level 8.8 Carbon Dioxide Level 37 H Chloride Level 94 L Creatinine 0.69 Eosinophils # 0.1 Eosinophils % 1.6 Glucose Level 188 Hematocrit 31.3 L Hemoglobin 10.2 L Iron Level 29 L Lymphocytes # 1.8 Lymphocytes % 24.5 Magnesium Level 1.6 L Mean Corpuscular Hemoglobin 27.8 L Mean Corpuscular Hemoglobin Concent 32.6 Mean Corpuscular Volume 85.2 Mean Platelet Volume 7.6 Monocytes # 0.6 Monocytes % 9.0 Neutrophils # 4.6 Neutrophils % 64.5 Nucleated Red Blood Cells # 0.0 Nucleated Red Blood Cells % 0.0 Percent Iron Saturation 12 L Phosphorus Level 1.9 L Platelet Count 512 H Potassium Level 4.7 Red Blood Count 3.67 L Red Cell Distribution Width 18.6 H Sodium Level 140 Total Iron Binding Capacity 242 White Blood Count 7.2 # Bedside Glucose 220 194 Medications Medications Current Medications Insulin Aspart NOVOLOG *MODERATE* ALGORI... Q6 SC Last administered on 17:27; Admin Dose 4 UNIT; Start 05/07/16 at 06:00 Levofloxacin/ Dextrose (Levaquin 500mg/ D5W 100 ml (Pmx)) 100 ml @ 100 mls/hr Q24H IVPB Last administered on 05/09/16 05:08; Admin Dose 100 MLS/HR; Start 05/07/16 at 06:30 Oseltamivir Phosphate (Tamiflu) 75 mg BID PO Last administered on 05/09/16 08: 22; Admin Dose 75 MG; Start 05/07/16 at 09:00 Influenza Virus Vaccine (Fluzone) 0.5 ml ONCE ONCE IM* ; Start 05/10/16 at 09:00 ; Stop 05/10/16 at 09:01 Pantoprazole (Protonix Iv) 40 mg BID IV Last administered on 05/09/16 08:21; Admin Dose 40 MG; Start 05/07/16 at 11:00 Nystatin (Nystatin Susp) 5 ml QID PO Last administered on 05/09/16 17:22; Admin Dose 5 ML; Start 05/07/16 at 17:00 Ascorbic Acid (Vitamin C) 500 mg DAILY GTB Last administered on 05/09/16 08:22 ; Admin Dose 500 MG; Start 05/09/16 at 09:00 Atorvastatin Calcium (Lipitor) 40 mg QHS GTB Last administered on 05/08/16 21: 04; Admin Dose 40 MG; Start 05/08/16 at 21:00 Calcium/Vitamin D (Oyster Shell/ Vit-D (500/200)) 1 tab DAILY GTB Last administered on 05/09/16 08:22; Admin Dose 1 TAB; Start 05/09/16 at 09:00 Clonidine (Catapres) 0.1 mg Q8 PRN GTB ELEVATED BLOOD PRESSURE; Start 05/08/16 at 10:00 Docusate Sodium (Colace Liquid Cup) 100 mg BID GTB Last administered on 08:21; Admin Dose 100 MG; Start 05/08/16 at 21:00 Doxazosin Mesylate (Cardura) 4 mg HS GTB Last administered on 05/08/16 21:07; Admin Dose 4 MG; Start 05/08/16 at 21:00 Ergocalciferol (Drisdol) 50,000 unit Mo@09 GTB Last administered on 05/09/16 08 :22; Admin Dose 50,000 UNIT; Start 05/09/16 at 09:00 Fenofibrate (Tricor) 145 mg QHS GTB Last administered on 05/08/16 21:04; Admin Dose 145 MG; Start 05/08/16 at 21:00 Insulin Glargine (Lantus) 20 unit 08,20 SC Last administered on 05/09/16 08:39 ; Admin Dose 20 UNIT; Start 05/08/16 at 20:00 Lactulose (Enulose) 40 gm QHS GTB Last administered on 05/08/16 21:04; Admin Dose 40 GM; Start 05/08/16 at 21:00 Magnesium Hydroxide (Milk Of Mag) 30 ml DAILY PRN GTB CONSTIPATION; Start at 10:00 Metoclopramide HCl (Reglan Liq) 10 mg Q6 GTB Last administered on 05/09/16 17: 22; Admin Dose 10 MG; Start 05/08/16 at 12:00 Metoprolol Tartrate (Lopressor) 25 mg BID GTB Last administered on 05/09/16 08: 22; Admin Dose 25 MG; Start 05/08/16 at 21:00 Polyethylene Glycol (Miralax) 17 gm DAILY GTB Last administered on 05/09/16 08: 21; Admin Dose 17 GM; Start 05/09/16 at 09:00 Tetrahydrozoline HCl (Geneyes Oph) 2 drop QID PRN LEFT EYE RED EYES; Start 05/08 at 10:00 Zolpidem Tartrate (Ambien) 10 mg QHS PRN GTB INSOMNIA; Start 05/08/16 at 10:00 Loratadine (Claritin) 10 mg DAILY PO Last administered on 05/09/16 08:22; Admin Dose 10 MG; Start 05/09/16 at 09:00 Lactobacillus Acidoph/Bulgaricus (Floranex) 1 tab BID GTB Last administered on 05/09/16 08:21; Admin Dose 1 TAB; Start 05/08/16 at 21:00 Multivitamins (Thera-Plus) 5 ml DAILY GTB Last administered on 05/09/16 08:21; Admin Dose 5 ML; Start 05/09/16 at 09:00 Olopatadine HCl (Patanol 0.1% Oph) 1 drop BID BOTH EYES Last administered on 08:22; Admin Dose 1 DROP; Start 05/08/16 at 21:00 Mupirocin (Bactroban) 1 applic BID TOP Last administered on 05/09/16 08:22; Admin Dose 1 APPLIC; Start 05/08/16 at 11:15 Miscellaneous Information 1 ea NOTE XX ; Start 05/08/16 at 11:00 Glucose (Glutose) 15 gm Q15M PRN PO DECREASED GLUCOSE; Start 05/08/16 at 11:00 Glucose (Glutose) 22.5 gm Q15M PRN PO DECREASED GLUCOSE; Start 05/08/16 at 11:00 Dextrose (D50w Syringe) 25 ml Q15M PRN IV DECREASED GLUCOSE; Start 05/08/16 at 11:00 Dextrose (D50w Syringe) 50 ml Q15M PRN IV DECREASED GLUCOSE; Start 05/08/16 at 11:00 Glucagon (Glucagen) 1 mg Q15M PRN IM DECREASED GLUCOSE; Start 05/08/16 at 11:00 Glucose (Glutose) 15 gm Q15M PRN BUCCAL DECREASED GLUCOSE; Start 05/08/16 at 11: 00 Acetaminophen (Tylenol Liquid) 650 mg Q6 PRN GTB PAIN AND OR ELEVATED TEMP Last administered on 05/09/16t 11:40; Admin Dose 650 MG; Start 05/09/16 at 11:30 FLORIN EBTH MD May 09, 2016 19:37
[2016-05-09] MEDS: LACTULOSE 30ML CUP GTB SCH (20:43)
[2016-05-09] MEDS: FENOFIBRATE 145 MG TAB GTB SCH (20:44)
[2016-05-09] MEDS: ATORVASTATIN 40 MG TAB GTB SCH (20:44)
[2016-05-09] MEDS: DOXAZOSIN 4 MG TAB GTB SCH (20:45)
[2016-05-09] MEDS: OSELTAMIVIR 75 MG CAP GTB SCH (20:46)
[2016-05-10] VITALS (13 sets, daily range): BP systolic 105–149; BP diastolic 58–71; PULSE 71–102; RESP 18–26
[2016-05-10] MEDS: INSULIN ASPART [NOVOLOG] 3 ML PEN SC SCH ×4 (00:07→18:00)
[2016-05-10] MEDS: ALBUTEROL/IPRATROPIUM (NEB) 3 ML AMP HHN PRN (01:50)
[2016-05-10] MEDS ORDERED: FUROSEMIDE 40 MG INJ IV ONE (02:30)
[2016-05-10] MEDS: METOCLOPRAMIDE (1 MG/ML) 10 ML CUP GTB SCH ×4 (06:14→18:00)
[2016-05-10] MEDS: LEVOFLOXACIN 500MG/D5W (PMX) 100 ML IVPB SCH (06:14)
[2016-05-10 07:46] LABS: POTASSIUM 4.7 mmol/L (3.5-5.1)
[2016-05-10 07:48] LABS: BASOPHILS % 0.4 % (0.0-2.0); CREATININE 0.75 mg/dl (0.61-1.24); EOSINOPHILS % 0.1 % (0.0-7.0); HEMATOCRIT 33.2 % (42.0-52.0); HEMOGLOBIN 10.8 g/dl (14.0-18.0); LYMPHOCYTES # 1.3 10^3/ul (0.8-2.9); LYMPHOCYTES % 16.3 % (15.0-51.0); MEAN CORPUSCULAR HGB CONC 32.4 g/dl (32.0-37.0); MEAN CORPUSCULAR VOLUME 86.5 fl (82.0-101.0); MEAN PLATELET VOLUME 8.3 fl (7.4-10.4); MONOCYTE # 0.6 10^3/ul (0.3-0.9); MONOCYTES % 6.9 % (0.0-11.0); NEUTROPHIL # 6.3 10^3/ul (1.6-7.5); NEUTROPHILS % 76.3 % (39.0-77.0); PLATELET COUNT 415 10^3/UL (140-440); RED BLOOD COUNT 3.84 10^6/ul (4.70-6.10); UNCORRECTED WBC 8.2 10^3/ul (4.8-10.8); WHITE BLOOD COUNT 8.2 10^3/ul (4.8-10.8)
[2016-05-10 07:49] LABS: CALCIUM 8.6 mg/dl (8.4-10.2)
[2016-05-10 07:54] LABS: CONDITION 1; LH ANALYZER COMMENTS 1
[2016-05-10] MEDS: DOCUSATE SODIUM 10 MG/ML (10ML CUP) GTB SCH (08:13)
[2016-05-10] MEDS: POLYETHYLENE GLYCOL 17 GM PACKET GTB SCH (08:13)
[2016-05-10] MEDS: NYSTATIN SUSP 5 ML CUP PO SCH ×3 (08:14→17:00)
[2016-05-10] MEDS: MULTIVITAMINS 5 ML CUP GTB SCH (08:14)
[2016-05-10] MEDS: ASCORBIC ACID 500 MG TAB GTB SCH (08:14)
[2016-05-10] MEDS: LACTOBACILLUS CHEW TAB GTB SCH (08:14)
[2016-05-10] MEDS: CALCIUM/VITAMIN D (500/200) TAB GTB SCH (08:14)
[2016-05-10] MEDS: ACETAMINOPHEN 650MG/20.3ML CUP GTB PRN (08:14)
[2016-05-10] MEDS: OSELTAMIVIR 75 MG CAP GTB SCH (08:14)
[2016-05-10] MEDS: LORATADINE 10 MG TAB PO SCH (08:14)
[2016-05-10] MEDS: PANTOPRAZOLE 40 MG INJ IV SCH (08:14)
[2016-05-10] MEDS: METOPROLOL 25 MG TAB GTB SCH (08:15)
[2016-05-10] MEDS: OLOPATADINE 0.1% 5 ML OPH BOTH EYES SCH (08:15)
[2016-05-10] MEDS: MUPIROCIN 2% 22 GM OINT TOP SCH (08:16)
[2016-05-10] MEDS ORDERED: INFLUENZA VIRUS VACCINE 0.5 ML SYG IM* ONE (09:00)
--- NOTE | 2016-05-10 10:02 | CONS ---
Date/Time of Note Date/Time of Note DATE: 05/10/16 TIME: 10:00 Assessment/Plan Assessment/Plan Additional Assessment/Plan Assessment and recommendations; 1. Patient admitted for pneumonia clinically improving . 2. History of CVA. 3. Chronic respiratory failure currently doing well on T-piece. 4. Diabetes, anemia, hypertension, which all appear fairly stable. Continue current treatment. Patient can be transferred to the residential. Consultation Date/Type/Reason Admit Date/Time May 06, 2016 at 20:35 Type of Consultation: Pulm 24 HR Interval Summary Free Text/Dictation Patient condition is stable. Has remained hemodynamically stable. No untoward events reported. General examination elderly, on T-piece via tracheostomy. Currently in no distress. Minimally responsive. Exam/Review of Systems Vital Signs Vitals Vital Signs Date Time Temp Pulse Resp B/P Pulse Ox O2 Delivery O2 Flow Rate FiO2 05/10/16 08:40 91 05/10/16 07:55 23 98 Aerosol 10.0 60 T Tube 05/10/16 07:37 102.7 144/71 Intake and Output 05/09/16 05/09/16 05/10/16 15:00 23:00 07:00 Intake Total 106 ml 900 ml 810 ml Output Total 400 ml 750 ml Balance 106 ml 500 ml 60 ml Exam HEENT examination; supple neck, no JVD. No lymphadenopathy. Tracheostomy in place with clean insertion site. Attached to T-piece. Chest examination; diminished but clear breath sounds. S1-S2 audible, no murmurs. Regular rate and rhythm. Abdomen examination; soft, nondistended. G-tube in place. No organomegaly. Bowel sounds audible. Extremity examination; no peripheral edema. COSTUME MISTRESS examination; patient is minimally responsive. Results Result Diagram: 05/10/1630 05/10/16 0630 Results 24 hrs Laboratory Tests Test 05/09/16 11:48 05/09/16 17:19 05/09/16 21:01 05/10/16 00:03 Bedside Glucose 220 194 236 H 237 H Test 05/10/16 06:23 05/10/16 06:30 05/10/16 08:10 Bedside Glucose 298 H 261 H Anion Gap 17 H Basophils # 0.0 Basophils % 0.4 Blood Morphology Comment Blood Urea Nitrogen 40 H Calcium Level 8.6 Carbon Dioxide Level 38 H Chloride Level 93 L Creatinine 0.75 Eosinophils # 0.0 Eosinophils % 0.1 Glucose Level 270 H Hematocrit 33.2 L Hemoglobin 10.8 L Lymphocytes # 1.3 Lymphocytes % 16.3 Mean Corpuscular Hemoglobin 28.0 L Mean Corpuscular Hemoglobin Concent 32.4 Mean Corpuscular Volume 86.5 Mean Platelet Volume 8.3 Monocytes # 0.6 Monocytes % 6.9 Neutrophils # 6.3 Neutrophils % 76.3 Nucleated Red Blood Cells # 0.0 Nucleated Red Blood Cells % 0.0 Platelet Count 415 Potassium Level 4.7 Red Blood Count 3.84 L Red Cell Distribution Width 19.0 H Sodium Level 143 White Blood Count 8.2 Medications Medications Current Medications Insulin Aspart NOVOLOG *MODERATE* ALGORI... Q6 SC Last administered on 06:28; Admin Dose 8 UNIT; Start 05/07/16 at 06:00 Levofloxacin/ Dextrose (Levaquin 500mg/ D5W 100 ml (Pmx)) 100 ml @ 100 mls/hr Q24H IVPB Last administered on 05/10/16 06:14; Admin Dose 100 MLS/HR; Start 05/07/16 at 06:30 Pantoprazole (Protonix Iv) 40 mg BID IV Last administered on 05/10/16 08:14; Admin Dose 40 MG; Start 05/07/16 at 11:00 Nystatin (Nystatin Susp) 5 ml QID PO Last administered on 05/10/16 08:14; Admin Dose 5 ML; Start 05/07/16 at 17:00 Ascorbic Acid (Vitamin C) 500 mg DAILY GTB Last administered on 05/10/16 08:14 ; Admin Dose 500 MG; Start 05/09/16 at 09:00 Atorvastatin Calcium (Lipitor) 40 mg QHS GTB Last administered on 05/09/16 20: 44; Admin Dose 40 MG; Start 05/08/16 at 21:00 Calcium/Vitamin D (Oyster Shell/ Vit-D (500/200)) 1 tab DAILY GTB Last administered on 05/10/16 08:14; Admin Dose 1 TAB; Start 05/09/16 at 09:00 Clonidine (Catapres) 0.1 mg Q8 PRN GTB ELEVATED BLOOD PRESSURE; Start 05/08/16 at 10:00 Docusate Sodium (Colace Liquid Cup) 100 mg BID GTB Last administered on 08:13; Admin Dose 100 MG; Start 05/08/16 at 21:00 Doxazosin Mesylate (Cardura) 4 mg HS GTB Last administered on 05/09/16 20:45; Admin Dose 4 MG; Start 05/08/16 at 21:00 Ergocalciferol (Drisdol) 50,000 unit Mo@09 GTB Last administered on 05/09/16 08 :22; Admin Dose 50,000 UNIT; Start 05/09/16 at 09:00 Fenofibrate (Tricor) 145 mg QHS GTB Last administered on 05/09/16 20:44; Admin Dose 145 MG; Start 05/08/16 at 21:00 Insulin Glargine (Lantus) 20 unit 08,20 SC Last administered on 05/09/16 21:03 ; Admin Dose 20 UNIT; Start 05/08/16 at 20:00 Lactulose (Enulose) 40 gm QHS GTB Last administered on 05/09/16 20:43; Admin Dose 40 GM; Start 05/08/16 at 21:00 Magnesium Hydroxide (Milk Of Mag) 30 ml DAILY PRN GTB CONSTIPATION; Start at 10:00 Metoclopramide HCl (Reglan Liq) 10 mg Q6 GTB Last administered on 05/10/16 06: 14; Admin Dose 10 MG; Start 05/08/16 at 12:00 Metoprolol Tartrate (Lopressor) 25 mg BID GTB Last administered on 05/10/16 08: 15; Admin Dose 25 MG; Start 05/08/16 at 21:00 Polyethylene Glycol (Miralax) 17 gm DAILY GTB Last administered on 05/10/16 08: 13; Admin Dose 17 GM; Start 05/09/16 at 09:00 Tetrahydrozoline HCl (Geneyes Oph) 2 drop QID PRN LEFT EYE RED EYES; Start 05/08 at 10:00 Zolpidem Tartrate (Ambien) 10 mg QHS PRN GTB INSOMNIA Last administered on 00:00; Admin Dose 10 MG; Start 05/08/16 at 10:00 Loratadine (Claritin) 10 mg DAILY PO Last administered on 05/10/16 08:14; Admin Dose 10 MG; Start 05/09/16 at 09:00 Lactobacillus Acidoph/Bulgaricus (Floranex) 1 tab BID GTB Last administered on 05/10/16 08:14; Admin Dose 1 TAB; Start 05/08/16 at 21:00 Multivitamins (Thera-Plus) 5 ml DAILY GTB Last administered on 05/10/16 08:14; Admin Dose 5 ML; Start 05/09/16 at 09:00 Olopatadine HCl (Patanol 0.1% Oph) 1 drop BID BOTH EYES Last administered on 08:15; Admin Dose 1 DROP; Start 05/08/16 at 21:00 Mupirocin (Bactroban) 1 applic BID TOP Last administered on 05/10/16 08:16; Admin Dose 1 APPLIC; Start 05/08/16 at 11:15 Miscellaneous Information 1 ea NOTE XX ; Start 05/08/16 at 11:00 Glucose (Glutose) 15 gm Q15M PRN PO DECREASED GLUCOSE; Start 05/08/16 at 11:00 Glucose (Glutose) 22.5 gm Q15M PRN PO DECREASED GLUCOSE; Start 05/08/16 at 11:00 Dextrose (D50w Syringe) 25 ml Q15M PRN IV DECREASED GLUCOSE; Start 05/08/16 at 11:00 Dextrose (D50w Syringe) 50 ml Q15M PRN IV DECREASED GLUCOSE; Start 05/08/16 at 11:00 Glucagon (Glucagen) 1 mg Q15M PRN IM DECREASED GLUCOSE; Start 05/08/16 at 11:00 Glucose (Glutose) 15 gm Q15M PRN BUCCAL DECREASED GLUCOSE; Start 05/08/16 at 11: 00 Acetaminophen (Tylenol Liquid) 650 mg Q6 PRN GTB PAIN AND OR ELEVATED TEMP Last administered on 05/10/16 08:14; Admin Dose 650 MG; Start 05/09/16 at 11:30 Oseltamivir Phosphate (Tamiflu) 75 mg BID GTB Last administered on 05/10/16 08: 14; Admin Dose 75 MG; Start 05/09/16 at 21:00 JOBY CESAR May 10, 2016 10:02
[2016-05-10] MEDS: INSULIN GLARGINE [LANtus] 3 ML PEN SC SCH (10:40)
[2016-05-10] MEDS ORDERED: OSLT75C GTB (15:41)
[2016-05-10] MEDS ORDERED: LEVO500T72 PO (15:41)
[2016-05-10] MEDS ORDERED: NYST1000 PO (15:41)
--- NOTE | 2016-05-10 15:44 | PDOCDIS ---
Discharge Instructions DIAGNOSIS Discharge Diagnosis: Sepsis 2/2 Influ A and Pneumonia CONDITION Patient Condition: Fair HOME CARE INSTRUCTIONS: Special Diet: Diabetisource ACTIVITY: Activity Restrictions: Rest between Activity Avoid heavy lifting FOLLOW UP/APPOINTMENTS Appointments follow up with physician at the facility. follow up with social work at the facility as well. OTHER ORDERS: Other Orders: Sepsis 2/2 PNA from influenza - continue with tamiflu for one more day, levaquin daily for 5 days more. AMMON HOOVER MD May 10, 2016 15:44
--- NOTE | 2016-05-10 16:41 | DS ---
DATE OF ADMISSION: 05/06/2016 DATE OF DISCHARGE: 05/10/2016 DISCHARGE DIAGNOSES: 1. Sepsis secondary to influenza A with possible bacterial pneumonia, started on Tamiflu. 2. Iron deficiency anemia. 3. Dysphagia status post PEG. 4. Respiratory failure with trach placement, ventilator dependent, now off the vent. 5. CVA. 6. Bed bound. 7. Type 2 diabetes. 8. CAD. 9. Atrial fibrillation. HOSPITAL COURSE: This is an 80-year-old male with history of chronic trach dependent respiratory failure, CVA, CAD, AFib, who presents from the nursing facility. He was sent with a low hemoglobin and fever. His hemoglobin was 7.8 on outpatient laboratories. He was brought in ambulance from the SNF for further evaluation and was sent to telemetry for further evaluation. GI and pulmonology were consulted at this time. Initial laboratory findings had shown a white count of 7.5, H and H 8.4 and 26.3 , platelets of 570, current white count 8.2, H and H 10.8 and 33.2 with platelets of 415. The patient did receive 2 units of blood. Initial chemistry had shown sodium 132, potassium 5.1, carbon dioxide 36, anion gap 13, BUN of 65 , creatinine 1.10, glucose 184, lactic acid 0.4, calcium 9.6, alkaline phosphatase of 40. Magnesium was found to be 1.8, which was repleted, iron of 38, TIBC of 272, iron saturation 11, ferritin of 1280. This is falsely elevated secondary to influenza. Current sodium was 143, potassium 4.7, chloride 93, carbon dioxide 38, anion gap of 17, BUN of 40, creatinine 0.75, glucose is mildly elevated at 227. ABG initially was a pH of 7.407, pCO2 of 56.5 with a pO2 of 93.1, bicarbonate of 34.8, O2 sat 96.7, base excess 8.6 . Stool for occult blood was negative. Coags were elevated with an INR of 3.03. Microbiology: Influenza A was positive, B was negative. Blood cultures negative. Nasopharyngeal culture did show MRSA. The patient was started on Bactroban at that time. Initial imaging a chest x-ray done in II, III, had shown: 1. Interval development of right lower lobe infiltrate suspicious for pneumonia 2. Suboptimal inspiratory effort with compressive atelectasis in the bases of lungs. 3. Satisfactory position of tracheostomy tube. 4. Atherosclerotic vascular disease. 5. Left ventricular enlargement. 6. Left pleural effusion. Abdominal x-ray had shown: 1. No evidence of bowel obstruction, perforation or radiopaque calculi overlying the urinary tracts. 2. Stable and satisfactory position of the gastrostomy tube. 3. Incompletely healed right femoral neck fracture with intramedullary yao and dynamic hip screw without evidence of hardware failure or other complications. 4. Patchy infiltrate in the left lung base. Repeat chest x-ray on 05/08/2016 shows: 1. Moderate cardiomegaly, unchanged. 2. Calcified atherosclerosis of the aortic arch. Patient subsequently has improved overall and was afebrile for the last 24 hours. Vital signs have been stable and continue with tube feeds at this time as having blow-by oxygen. Otherwise, no other acute complaints were noted and the patient [facility] at [facility] time. DISPOSITION: Subacute rehabilitation. CONDITION: Fair to stable. DISCHARGE MEDICATIONS: 1. Levaquin 500 mg p.o. daily for the next 7 days. 2. Nystatin 5 mL p.o. q.i.d. for the next 7 days. 3. Tamiflu 75 mg via G-tube b.i.d. for 1 day. 4. Tylenol 650 mg G-tube q.6h. p.r.n. for pain and temperature. 5. Pro-Stat liquid 30 mL G-tube t.i.d. 6. Vitamin C 500 mg p.o. via G-tube daily. 7. Atorvastatin 40 mg via G-tube at bedtime. 8. Os-Olivier 500 plus D 1 tab via G-tube daily. 9. Zyrtec 10 mg via G-tube daily. 10. Clonidine 0.1 mg via G-tube q.8h. p.r.n. for SBP greater than 160. 11. Cranberry 400 mg via G-tube daily. 12. Colace 100 mg via G-tube b.i.d. 13. Doxazosin 4 mg via G-tube at bedtime. 14. Vitamin D2 50,000 units via G-tube 7 days. 15. Omeprazole 40 mg via G-tube b.i.d. 16. Fenofibrate 140 mg via G-tube at bedtime. 17. Glucagon 1 mg IM p.r.n. 18. [place] 1 tab G-tube q. p.r.n. 19. Insulin 1 to 6 units subq b.i.d. 20. Lantus 20 units subq b.i.d. 21. Albuterol/ipratropium 3 mL inhaled q.6h. p.r.n. for shortness of breath. 22. Probiotic 1 capsule G-tube b.i.d. 23. Lactulose 40 grams via G-tube at bedtime. 24. Lorazepam 1 mg G-tube q.6h. p.r.n. for anxiety. 25. Reglan 10 mg G-tube q. 6. 26. Lopressor 25 mg via G-tube b.i.d. 27. Multivitamin 125 mL via G-tube daily. 28. Nitrostat 0.4 mg sublingual q.4h. p.r.n. 29. Pataday PET 1 drop both eyes daily. 30. Omeprazole 20 mg via G-tube daily. 31. Polyethylene glycol 17 grams via G-tube daily. 32. Visine 2 drops left eye q.i.d. p.r.n. for retinitis. 33. Ambien 10 mg G-tube at bedtime. FOLLOWUP: The patient will follow up with primary care physician at the facility, will follow up with ID as needed thereafter and pulmonology as well. Patient and consultants were made aware of this and agree with the plan. Coordination of discharge greater than 45 minutes. Dictated By: AMMON SAMUELS/JALEESA Conf#: [id number] DID#: [id number]
== END 2016-05-10 19:00 | DRG 871 ==
LOC: E/R 17:53 → TEL 20:35
PROVIDERS: ADMIT Internal Medicine; ATTEND Internal Medicine
PROC: 30233N1 Transfusion of Nonautologous Red Blood Cells into Peripheral Vein, Percutaneous Approach (ICD-10-PCS; principal; 2016-05-07)
DX: A41.89 Other specified sepsis (principal); J10.08 Influenza due to other identified influenza virus with other specified pneumonia; J96.10 Chronic respiratory failure, unspecified whether with hypoxia or hypercapnia; Z93.0 Tracheostomy status; I48.91 Unspecified atrial fibrillation; J15.9 Unspecified bacterial pneumonia; Z93.1 Gastrostomy status; D50.9 Iron deficiency anemia, unspecified; E11.9 Type 2 diabetes mellitus without complications; Z86.73 Personal history of transient ischemic attack (TIA), and cerebral infarction without residual deficits; Z66 Do not resuscitate; R65.20 Severe sepsis without septic shock; Z74.01 Bed confinement status; I25.10 Atherosclerotic heart disease of native coronary artery without angina pectoris; Z22.322 Carrier or suspected carrier of Methicillin resistant Staphylococcus aureus
CPT/HCPCS: 36415; 36430; 36600; 71010; 74000; 80048; 80053; 82270; 82728; 82803; 82962; 83540; 83605; 83735; 84100; 84484; 85025; 85610; 85730; 86850; 86900; 86901; 86920; 87040; 87070; 87400; 90686; 93005; 94640; 94664; 96374; 96375; C9113; J1720; J1815; J1940; J1956; J3370; J3475; J7030; J7040; J7050; P9016